=== PATIENT | female | born 1985 | race Caucasian/White ===

== ENCOUNTER 2017-03-20 11:50 | Emergency (ER) | payer OTHER ==
[~2017-03-20] VITALS: Ht 170.2 cm; Wt 75.0 kg
[2017-03-20 12:08] VITALS: TEMP 36.8; Ht 170.2 cm; Wt 75.0 kg
[2017-03-20 13:02] LABS: MANUAL MICROSCOPIC REQUIRED? NO; REVIEW REQ? NO; URINE APPEARANCE CLEAR (CLEAR); URINE BILIRUBIN NEG (NEG); URINE COLOR YELLOW; URINE EPITHELIAL CELL AUTO >30 /lpf (0-5); URINE NITRITE NEG (NEG); URINE PH 7.5 (4.5-7.5); UROBILINOGEN NEG (NEG); ZZUR CULT IF INDIC CLEAN CATCH YES
[2017-03-20 13:12] LABS: BASO % 0.3 %; BASO ABS # 0.02 K/uL (0-0.2); COMPLETE YES; HEMATOCRIT 41.2 % (37-47); IG% 0.1 %; LYMPH % 16.9 %; LYMPH ABS # 1.19 K/uL (1.2-3.4); MEAN CELL VOLUME 90.5 fL (80-100); MEAN CORPUSCULAR HEMOGLOBIN 31.6 pg (25-34); MEAN PLATELET VOLUME 10.5 fL (7.4-10.4); MONO % 8.2 %; NEUT % 73.5 %; PLATELET COUNT 197 K/uL (130-400); RED BLOOD COUNT 4.55 M/uL (4.2-5.4); WHITE BLOOD COUNT 7.06 K/uL (4.8-10.8)
[2017-03-20] MEDS ORDERED: SODIUM CHLORIDE 0.9% 1000ML 1,000 ML IV STA ×2 (13:22)
[2017-03-20] MEDS ORDERED: ONDANSETRON INJ 2 MG/ML 2 ML VIAL IV STA (13:22)
[2017-03-20] MEDS ORDERED: MECLIZINE HCL 25 MG TAB PO STA (13:22)
[2017-03-20] MEDS ORDERED: METHYLPREDNISOLONE 125 MG VIAL IV STA (13:22)
[2017-03-20 13:33] LABS: BUN/CREATININE RATIO 17.6 (10-20); CALCIUM 9.1 mg/dl (8.5-10.1); CREATININE 0.76 mg/dl (0.60-1.20); POTASSIUM 3.7 mmol/L (3.5-5.1)
[2017-03-20 13:36] LABS: ALB/GLOB RATIO 1.1 (0.9-2)
--- NOTE | 2017-03-20 13:36 | EMERGENCY ROOM VISIT NOTE ---
History Report prepared by Nilda: Quincy Roberts Under the Supervision of: Dr. Meaghan Celaya M.D. First contact with patient: 13:04 Chief Complaint: DIZZY Stated Complaint: DIZZY-WORSENING, NAUSEA, FEEL LIKE PASSING OUT Nursing Triage Summary: pt states she woke up this AM feeling very dizzy with any movement. "its like I am drunk without being drunk" "my head feels like its spinning,.. It took 20 minutes to put on my clothes." patient also c/o nausea. patient states she had 1 1/2 glasses of wine last night. History of Present Illness The patient is a 31 year old female who presents to the Emergency Room with complaints of worsening dizziness that started upon waking this morning. She says that she woke up and felt extremely dizzy, and could not stand up right. The patient states that at first she thought that she was a bit hazy from just waking up, but it took her 20 minutes to get dressed, and she had this "vertigo- type feeling of falling and spinning". She notes that she had to get dressed sitting on the floor. The patient describes it as feeling "drunk without drinking". She adds that she got up to use the restroom after sitting on the couch for a while, and felt "10 times" dizzier than before, and she felt like she was going to pass out. The patient sat on the floor for a bit, and then felt very nauseous. She says that she currently gets very nauseous with movement , and is still dizzy. She notes that she did not take any medications for the dizziness, and she denies hitting her head recently or having any stroke-like symptoms or allergies. The patient says that she last took Tramadol 2 and a half weeks ago for chronic back pain, and she takes a muscle relaxer. The patient adds that she drank a glass of wine last night, but did not have any other substances. She is on Nexplanon. Source of History: patient Onset: Upon waking this morning Position: other (global - dizziness) Quality: other ("vertigo-type") Timing: worsening Associated Symptoms: + nausea Note: Associated symptoms: [place] like going to pass out in bathroom. Denies hitting head recently or recent stroke-like symptoms. Review of Systems See HPI for pertinent positives & negatives. A total of 10 systems reviewed and were otherwise negative. Past Medical & Surgical Medical Problems: (1) No chronic diseases present Surgical Problems: (1) [place] teeth extracted Family History Heart disease Hypertension Social History Smoking Status: Never Smoker Alcohol Use: none Drug Use: none Marital Status: in relationship Housing Status: lives with family Occupation Status: employed Current/Historical Medications No Active Prescriptions or Reported Meds Allergies Coded Allergies: Ciprofloxacin (Verified Allergy, Mild, RASH, 03/20/17) Quinolones (Verified Allergy, Unknown, 06/03/15) Physical Exam Vital Signs Date Time Temp Pulse Resp B/P (MAP) Pulse Ox O2 Delivery O2 Flow Rate FiO2 03/20/17 15:51 70 20 112/72 98 Room Air 03/20/17 14:50 71 17 03/20/17 14:30 117/70 03/20/17 14:25 66 03/20/17 14:20 66 17 03/20/17 14:07 117/73 03/20/17 13:50 60 14 03/20/17 13:30 100/90 03/20/17 12:08 36.8 76 18 115/73 98 Room Air Physical Exam Vital signs reviewed. General: Well-appearing 31 year old female, in no significant distress. HEENT: No scleral icterus, PERRLA, neck supple. Atraumatic. Cardiovascular: Regular rate and rhythm, no extra sounds. Pulmonary: Clear to auscultation bilaterally, normal work of breathing. Abdomen: Soft, nontender, nondistended, positive bowel sounds. Musculoskeletal: Atraumatic, no peripheral edema. Neurologic: Patient awake alert and oriented x 3, full strength in all 4 extremities. Cranial nerves 2 through 12 grossly intact. Minimal horizontal nystagmus. Skin: Warm, dry, no rash Medical Decision & Procedures Laboratory Results 03/20/17 13:00 Red Blood Count 4.55, Mean Corpuscular Volume 90.5, Mean Corpuscular Hemoglobin 31.6, Mean Corpuscular Hemoglobin Concent 35.0, Mean Platelet Volume 10.5, Neutrophils (%) (Auto) 73.5, Lymphocytes (%) (Auto) 16.9, Monocytes (%) (Auto) 8.2, Eosinophils (%) (Auto) 1.0, Basophils (%) (Auto) 0.3, Neutrophils # (Auto) 5.19, Lymphocytes # (Auto) 1.19, Monocytes # (Auto) 0.58, Eosinophils # (Auto) 0.07, Basophils # (Auto) 0.02 03/20/17 13:00 Test 03/20/17 12:43 03/20/17 13:00 Urine Color YELLOW Urine Appearance CLEAR (CLEAR) Urine pH 7.5 (4.5-7.5) Urine Specific [place] 1.020 (1.000-1.030) Urine Protein NEG (NEG) Urine Glucose (UA) NEG (NEG) Urine Ketones NEG (NEG) Urine Occult Blood NEG (NEG) Urine Nitrite NEG (NEG) Urine Bilirubin NEG (NEG) Urine Urobilinogen NEG (NEG) Urine Leukocyte Esterase SMALL (NEG) Urine WBC (Auto) 5-10 /hpf (0-5) Urine RBC (Auto) 0-4 /hpf (0-4) Urine Hyaline Casts (Auto) 1-5 /lpf (0-5) Urine Epithelial Cells (Auto) >30 /lpf (0-5) Urine Bacteria (Auto) 4+ (NEG) Urine Test NEG (NEG) White Blood Count 7.06 K/uL (4.8-10.8) Red Blood Count 4.55 M/uL (4.2-5.4) Hemoglobin 14.4 g/dL (12.0-16.0) Hematocrit 41.2 % (37-47) Mean Corpuscular Volume 90.5 fL (80-100) Mean Corpuscular Hemoglobin 31.6 pg (25-34) Mean Corpuscular Hemoglobin Concent 35.0 g/dl (32-36) Platelet Count 197 K/uL (130-400) Mean Platelet Volume 10.5 fL (7.4-10.4) Neutrophils (%) (Auto) 73.5 % Lymphocytes (%) (Auto) 16.9 % Monocytes (%) (Auto) 8.2 % Eosinophils (%) (Auto) 1.0 % Basophils (%) (Auto) 0.3 % Neutrophils # (Auto) 5.19 K/uL (1.4-6.5) Lymphocytes # (Auto) 1.19 K/uL (1.2-3.4) Monocytes # (Auto) 0.58 K/uL (0.11-0.59) Eosinophils # (Auto) 0.07 K/uL (0-0.5) Basophils # (Auto) 0.02 K/uL (0-0.2) RDW Standard Deviation 41.4 fL (36.4-46.3) RDW Coefficient of Variation 12.5 % (11.5-14.5) Immature Granulocyte % (Auto) 0.1 % Immature Granulocyte # (Auto) 0.01 K/uL (0.00-0.02) Anion Gap 6.0 mmol/L (3-11) Est Creatinine Clear Calc Drug Dose 114.4 ml/min Estimated GFR () 122.0 Estimated GFR (Non- 105.3 BUN/Creatinine Ratio 17.6 (10-20) Calcium Level 9.1 mg/dl (8.5-10.1) Total Bilirubin 1.2 mg/dl (0.2-1) Aspartate Amino Transf (AST/SGOT) 14 U/L (15-37) Alanine Aminotransferase (ALT/SGPT) 13 U/L (12-78) Alkaline Phosphatase 59 U/L (45-117) Total Protein 7.5 gm/dl (6.4-8.2) Albumin 3.9 gm/dl (3.4-5.0) Globulin 3.6 gm/dl (2.5-4.0) Albumin/Globulin Ratio 1.1 (0.9-2) Date/Time Source Procedure Growth Status 03/20/17 12:43 Urine , Clean Catch Urine Culture - Final Escherichia Coli Complete Laboratory results per my review. Medications Administered Medications (Trade) Dose Ordered Sig/Lamont Route Start Time Stop Time Status Last Admin Dose Admin Ondansetron HCl (Zofran Inj) 4 mg NOW STAT IV 03/20/17 13:22 03/20/17 13:24 DC 03/20/17 13:34 4 MG Meclizine HCl (Antivert Tab) 25 mg NOW STAT PO 03/20/17 13:22 03/20/17 13:24 DC 03/20/17 13:33 25 MG Methylprednisolone Sodium Succinate (Solu-Medrol IV) 125 mg NOW STAT IV 03/20/17 13:22 03/20/17 13:24 DC 03/20/17 13:34 125 MG Sodium Chloride 1,000 ml @ 999 mls/hr Q1H1M STAT IV 03/20/17 13:22 10/20/17 14:22 DC 03/20/17 13:22 999 MLS/HR Sodium Chloride 1,000 ml @ 125 mls/hr Q8H STAT IV 03/20/17 13:22 03/20/17 16:46 DC 03/20/17 13:22 125 MLS/HR Meclizine HCl (Antivert 25MG Home Pack) 1 homepack UD ONCE PO 03/20/17 16:30 03/20/17 16:31 DC 03/20/17 16:33 1 HOMEPACK Ondansetron HCl (ZOFRAN ODT 4MG Home Pack) 1 homepack UD ONCE PO 03/20/17 16:30 03/20/17 16:31 DC 03/20/17 16:33 1 HOMEPACK ED Course 1321: Past medical records reviewed. The patient was evaluated in room C11B. A complete history and physical examination was performed. 1322: Ordered NSS 1000 ml @ 125 mls/hr IV, NSS 1000 ml @ 999 mls/hr IV, Solu- Medrol IV 125 mg IV, Antivert Tab 25 mg PO, Zofran Inj 4 mg IV. 1537: Upon reevaluation, the patient appeared to have improvement of her symptoms. I discussed findings with her. She verbalized agreement of the treatment plan. She was discharged home. 1630: Ordered Zofran ODT 4MG Home Pack 1 homepack PO, Antivert 25MG Home Pack 1 homepack PO. Medical Decision Differential diagnosis: Etiologies such as benign positional vertigo, dehydration, hypovolemia, anemia, tumor, infection, hypoglycemia, electrolyte abnormalities, cardiac sources, intracerebral event, toxicologic, neurologic, as well as others were entertained. This patient was evaluated and appeared to be in no significant distress. IV access was obtained and laboratory work was drawn. Patient was placed on the environmental monitoring specialist and found to be in a normal sinus rhythm. She was hydrated with over saline solution, given IV Zofran and IV Solu-Medrol. She was given oral meclizine. Laboratory work is fairly unrevealing. UA is largely negative and is contaminated with epithelial cells. This will be sent for culture. On reevaluation, the patient was feeling improved with occasional vertiginous symptoms. I suspect this is benign positional vertigo. She was given a meclizine home pack. She'll drink plenty of clear fluids and rest. Patient will follow-up with her physician this week for reevaluation return to the ER for worsening of symptoms or any medical concerns. Medication Reconcilliation Current Medication List: was personally reviewed by me Blood Pressure Screening Patient's blood pressure: Normal blood pressure Impression Primary Impression: Vertigo Scribe Attestation The scribe's documentation has been prepared under my direction and personally reviewed by me in its entirety. I confirm that the note above accurately reflects all work, treatment, procedures, and medical decision making performed by me. Departure Information Dispostion Home / Self-Care Prescriptions No Active Prescriptions or Reported Meds Referrals Angelo Cee M.D. (PCP) Patient Instructions My [facility] Additional Instructions Diagnosis: Vertigo Please drink plenty of clear fluids. Meclizine 25 mg 3 times daily as needed for vertigo. Zofran 4 mg ODT as needed for nausea. Follow-up with your physician this week for reevaluation. Return to the ER for worsening of symptoms or any medical concerns.
[2017-03-20 15:51] VITALS: BP 112/72; PULSE 70; O2SAT 98
[2017-03-20] MEDS ORDERED: ONDANSETRON HOME PACK 4MG OD TAB PO ONE (16:30)
[2017-03-20] MEDS ORDERED: MECLIZINE HCL 25MG HOME PACK PO ONE (16:30)
== END 2017-03-20 16:30 | disposition home or self-care (01) ==
LOC: C.EDB 11:52 → C.EDC 16:30
DX: R42 Dizziness and giddiness (principal); Z82.49 Family history of ischemic heart disease and other diseases of the circulatory system

== ENCOUNTER 2017-03-22 15:33 | Emergency (ER) | payer OTHER ==
[~2017-03-22] VITALS: Ht 170.2 cm; Wt 75.0 kg
[2017-03-22 15:36] VITALS: TEMP 36.6; Ht 170.2 cm; Wt 75.0 kg
[2017-03-22] MEDS ORDERED: NITR1CAP32 PO (15:51)
[2017-03-22] MEDS ORDERED: DIAZEPAM 5MG TAB PO STA (16:00)
[2017-03-22] MEDS ORDERED: SODIUM CHLORIDE 0.9% 1000ML 1,000 ML IV STA (16:00)
[2017-03-22] MEDS ORDERED: DiphenhydrAMINE HCL 50 MG/ML VIAL IV STA (16:00)
[2017-03-22] MEDS ORDERED: ONDANSETRON INJ 2 MG/ML 2 ML VIAL IV STA (16:00)
[2017-03-22] MEDS ORDERED: ONDA4TAB10 SL (18:13)
[2017-03-22] MEDS ORDERED: DIAZ-165 PO (18:13)
[2017-03-22] MEDS ORDERED: DIAZEPAM 5MG TAB PO ONE (18:15)
[2017-03-22] MEDS ORDERED: ONDANSETRON HOME PACK 4MG OD TAB PO ONE (18:15)
[2017-03-22 18:19] VITALS: BP 116/75; PULSE 65; O2SAT 100
[2017-03-22] MEDS ORDERED: EMPTY 8 DRAM VIAL ONE (18:21)
--- NOTE | 2017-03-23 01:26 | EMERGENCY ROOM VISIT NOTE ---
History First contact with patient: 15:46 Chief Complaint: VERTIGO Stated Complaint: DIZZY, VOMITING, VERTIGO History of Present Illness The patient is a 31 year old female who presents to the Emergency Room with complaints of persistent vertigo symptoms. The patient was evaluated in the emergency department 2 days ago with a normal workup. She was provided a prescription for meclizine, but reports that her symptoms are persisting. The patient has found only one position, laying on her right side with her head slightly elevated on a pillow. With any other movement, she reports progressively worsening spinning sensation. It is somewhat improved with her eyes shut, but is still present. She reports a split vision of both eyes as well. She reports mild photophobia. She denies headache, or other recent upper respiratory infections such as sinus congestion or sore throat. She denies any recent chest pain or shortness of breath. The patient denies any prior history of benign positional vertigo. Review of Systems HEENT: Denies hearing loss, tinnitus. Denies difficulty swallowing or oral lesions. PULMONARY: Denies cough, shortness of breath, sputum production or hemoptysis. CARDIOVASCULAR: Denies chest pain, palpitations, dyspnea on exertion, orthopnea or peripheral edema. GASTROINTESTINAL: Denies diarrhea, constipation, nausea, vomiting, or abdominal pain. GENITOURINARY: Denies dysuria, frequency, urgency or nocturia. NEUROLOGIC: Denies history of epilepsy, CVA, TIA or chronic headaches. MUSCULOSKELETAL: Denies history of joint tenderness/swelling. SKIN: Denies rashes or lesions. PSYCHIATRIC: Denies history of depression or mental illness. ENDOCRINE: Denies history of diabetes or thyroid disorders. Past Medical/Surgical History Medical Problems: (1) No chronic diseases present Surgical Problems: (1) [place] teeth extracted Family History Heart disease Hypertension Social History Smoking Status: Never Smoker Alcohol Use: none Drug Use: none Marital Status: in relationship Housing Status: lives with family Occupation Status: employed Current/Historical Medications Scheduled Diazepam (Valium), 5 MG PO TID Nitrofurantoin Macrocrystals (Macrodantin), 100 MG PO BID Ondasetron Odt (Zofran Odt), 4 MG SL Q6H Physical Exam Vital Signs Date Time Temp Pulse Resp B/P (MAP) Pulse Ox O2 Delivery O2 Flow Rate FiO2 03/22/17 18:19 65 116/75 100 Room Air 03/22/17 17:30 60 19 91/60 98 03/22/17 15:36 36.6 71 18 119/75 100 Room Air Physical Exam CONSTITUTIONAL: Healthy and well nourished. Alert and oriented X 3 with positive affect. The patient appears in moderate discomfort with nausea. She is laying in a right lateral lower, and position with her head on the pillow, and tries to keep her eyes closed. HEENT: Normocephalic, atraumatic. Pupils equal, round and reactive. No obvious nystagmus. NECK: Full active range of motion without discomfort. No JVD or carotid bruits. No nuchal rigidity. RESPIRATORY: Clear to auscultation bilaterally with no wheezing, crackles, rhonchi or stridor. CARDIOVASCULAR: Regular rate and rhythm with no murmurs, rubs or gallops. GASTROINTESTINAL: Bowel sounds present in all quadrants. Soft and nontender to palpation. MUSCULOSKELETAL: Full range of motion of all joints without discomfort. INTEGUMENTARY: No rash or other significant dermatologic conditions noted. NEUROLOGIC: No focal neurologic deficits noted. Medical Decision & Procedures Medications Administered Medications (Trade) Dose Ordered Sig/Lamont Route Start Time Stop Time Status Last Admin Dose Admin Sodium Chloride 1,000 ml @ 999 mls/hr Q1H1M STAT IV 03/22/17 16:00 03/22/17 17:00 DC 03/22/17 16:00 999 MLS/HR Diphenhydramine HCl (Benadryl Inj) 25 mg NOW STAT IV 03/22/17 16:00 03/22/17 16:03 DC 03/22/17 16:24 25 MG Diazepam (Valium Tab) 5 mg NOW STAT PO 03/22/17 16:00 03/22/17 16:03 DC 03/22/17 16:23 5 MG Ondansetron HCl (Zofran Inj) 4 mg NOW STAT IV 03/22/17 16:00 03/22/17 16:03 DC 03/22/17 16:24 4 MG Ondansetron HCl (ZOFRAN ODT 4MG Home Pack) 1 homepack UD ONCE PO 03/22/17 18:15 03/22/17 18:18 DC 03/22/17 18:15 1 HOMEPACK Diazepam (Valium Tab) 10 mg NOW ONCE PO 03/22/17 18:15 03/22/17 18:18 DC 03/22/17 18:15 10 MG Procedure 1. IV hydration: The patient was hydrated with a liter normal saline 2. IV medications: Benadryl 25 mg and Zofran 4 mg IVP 3. Oral medications: Valium 5 mg by mouth ED Course Patient history and physical exam were performed. Nurse's notes were reviewed. Vital signs were reviewed and were normal. I also reviewed documentation from the patient's ER evaluation 2 days ago. The patient had lab work performed that was normal. No imaging studies were performed. The patient described her symptoms on that visit that were most consistent with benign positional vertigo; her continued complaints today are still suggestive of the same etiology. At this point, I suggested IV access for symptomatic relief, and the patient was in agreement. IV access was established, and labs were drawn. The patient was hydrated with normal saline, and received IV Benadryl and Zofran, along with oral Valium as intravenous Valium preparation is on national backorder. After observation for approximately 1.5 hours, the patient did report feeling well enough to go home, although she still had noticeable dizziness. She reports that the visual disturbance had resolved, and does not appear to have the spinning sensation as bad as what it has been. The patient was provided a home pack and prescriptions for Valium and Zofran ODT. She was encouraged to follow-up with her PCP for further reevaluation and management. She was also provided contact information for [facility] to see if they have any other recommendations for vertigo referral. The patient was happy with plan of care, and voiced understanding of all discharge instructions. Medical Decision Patient presents to the emergency department with persistent complaints of vertiginous symptoms. It is noted that the patient had a thorough workup on her most recent ER visit, therefore I do not feel that further workup is warranted. The patient gives a classic description of benign positional vertigo. I do not suspect CVA/TIA, thromboembolic event, intracranial bleed, brain abscess or carbon monoxide poisoning. [place] Drug Monitoring Program Search Results: patient reviewed within database Medication Reconcilliation Current Medication List: was personally reviewed by me Blood Pressure Screening Patient's blood pressure: Normal blood pressure Impression Primary Impression: Benign positional vertigo Departure Information Prescriptions Ondasetron Odt (ZOFRAN ODT) 4 Mg Tab 4 MG SL Q6H for Nausea, #10 TAB Prov: Nirav Ryder PA 03/22/17 Diazepam (Valium) 5 Mg Tab 5 MG PO TID, #15 TAB Prov: Nirav Ryder PA 03/22/17 Referrals No Doctor, Assigned (PCP) Patient Instructions My [facility] Problem Qualifiers Primary Impression: Benign positional vertigo Laterality: unspecified laterality Qualified Codes: H81.10 - Benign paroxysmal vertigo, unspecified ear
== END 2017-03-22 18:37 | disposition home or self-care (01) ==
LOC: C.EDB 15:34 → C.EDC 18:37
DX: H81.10 Benign paroxysmal vertigo, unspecified ear (principal); Z82.49 Family history of ischemic heart disease and other diseases of the circulatory system

== ENCOUNTER 2018-01-21 15:04 | Observation (INO) | payer OTHER ==
[~2018-01-21] VITALS: Ht 170.2 cm; Wt 77.6 kg
[2018-01-21 15:40] VITALS: BP 118/73; PULSE 81; TEMP 36.4; O2SAT 98
[2018-01-21] MEDS: OXYCODONE/ACETAMINOPHEN 5-325 TAB PO PRN ×2 (17:48→22:00)
[2018-01-21] MEDS: LACTATED RINGER'S 1000ML 1,000 ML IV SCH (17:50)
[2018-01-21] MEDS: IBUPROFEN 600 MG TAB PO SCH (19:36)
[2018-01-21 23:15] VITALS: BP 116/70; PULSE 86; TEMP 37; O2SAT 99
[2018-01-22] MEDS: LACTATED RINGER'S 1000ML 1,000 ML IV SCH (01:53)
[2018-01-22] MEDS: OXYCODONE/ACETAMINOPHEN 5-325 TAB PO PRN (02:33)
[2018-01-22 04:20] VITALS: BP 119/67; PULSE 84; TEMP 37; O2SAT 98
[2018-01-22] MEDS ORDERED: IBUPROFEN 600 MG TAB PO PRN (04:45)
[2018-01-22] MEDS ORDERED: NURSING VERBAL MED ORDER ONE (04:45)
[2018-01-22] MEDS: IBUPROFEN 600 MG TAB PO PRN ×3 (04:53→15:28)
[2018-01-22 07:39] VITALS: BP 106/60; PULSE 86; TEMP 37.2; O2SAT 98
[2018-01-22 07:41] VITALS: BP 106/60; PULSE 86; TEMP 37.2; O2SAT 98
[2018-01-22] MEDS: IBUPROFEN 600 MG TAB PO SCH (08:45)
--- NOTE | 2018-01-22 09:30 | Surgery Progress Note ---
Surgery Progress Note Date of Service Jan 22, 2018. Subjective Post OP Day: 1 + nausea Objective Vital Signs: Date Time Temp Pulse Resp B/P (MAP) Pulse Ox O2 Delivery O2 Flow Rate FiO2 01/22/18 07:55 Room Air 01/22/18 07:41 37.2 86 16 106/60 (75) 98 Room Air 01/22/18 07:39 37.2 86 16 106/60 (75) 98 Room Air 01/22/18 04:20 37.0 84 18 119/67 (84) 98 Room Air 01/21/18 23:15 99 Room Air 01/21/18 23:15 37.0 86 18 116/70 (85) 99 Room Air 01/21/18 15:40 36.4 81 16 118/73 (88) 98 Room Air 01/21/18 15:40 98 Room Air 01/21/18 15:40 Room Air General Appearance: WD/WN, no apparent distress Respiratory/Chest: lungs clear, normal breath sounds Cardiovascular: regular rate, rhythm Abdomen: normal bowel sounds, non tender, non distended Assessment & Plan 32 yo s/p attempted LEEP and cold knife biopsy complicated by bleeding in the PACU, leading to second surgical procedure of EUA. Second procedure did not yield any bleeding. Hemostatic agents (Surgicel and floseal) and vaginal packing added to the cervix and vaginal cavity. Patient was lightheaded and nauseous in [facility] PACU and sent via ambulance to [facility] for observation. Light pink blood on maxipad overnight. VSS. No active bleeding. Vaginal packing removed. IV heplock. Plan to discharge home later today. regular diet
[2018-01-22] MEDS: ACETAMINOPHEN 325 MG TAB PO PRN ×2 (09:41→15:26)
[2018-01-22 11:54] VITALS: BP 116/72; PULSE 97; TEMP 37.2; O2SAT 99
[2018-01-22] MEDS ORDERED: ACET-1047 PO (12:48)
--- NOTE | 2018-01-22 12:50 | Discharge Instructions ---
Discharge Instructions Date of Service Jan 22, 2018. Admission Reason for Admission: Post-Leep Procedure, Back, Pelvic Pain Discharge Discharge Diagnosis / Problem: Post-op Discharge Goals Goal(s): Routine recovery after surgery Activity Recommendations Activity Limitations: as noted below ACTIVITY RECOMMENDATIONS: * Avoid tampons, douching, hot tubs, pools, and intercourse until bleeding has stopped. * May shower as usual. * No strenuous activity for 24-48 hours. After 24-48 hours, you can do anything you feel like doing (driving and sports are okay). RETURN TO SCHOOL/WORK: * You may return to school or work after 24 hours unless specified by your physician. DIET: * Resume previous diet. MEDICATIONS: Resume previous medications unless instructed otherwise by your surgeon. Ibuprofen 200mg 2-3 tablets every 4-6 hours as needed --OR-- Aleve 2 tablets every 8-12 hours as needed for post-operative discomfort Medications are over the counter. Tylenol may be used if above medications are contraindicated or not preferred. Medication should be taken with food or milk. do not take on an empty stomach. SPECIAL CARE INSTRUCTIONS: * Check temperature twice daily for one week. Report any elevation over 101 degrees. * Call office if you experience increased pelvic pain or discomfort not relieved by pain medicine, if you have foul smelling vaginal discharge, if you have bleeding that is heavier than a normal menstrual flow. If you are changing a maxi pad every 1- 2 hours, this is too heavy. vaginal spotting is normal for 1-2 weeks. FOLLOW UP VISIT: Call your doctor's office for a post-operative visit. . Instructions / Follow-Up Instructions / Follow-Up Follow-up appointment with Dr. Etienne at the [facility] office on 01/25/2018 at 10 am . Please arrive 15 minutes early for Nursing triage. Current Hospital Diet Patient's current hospital diet: Regular Diet Discharge Diet Recommended Diet: Regular Diet Pending Studies Studies pending at discharge: yes List of pending studies: [facility] Medical Emergencies . Who to Call and When: Medical Emergencies: If at any time you feel your situation is an emergency, please call 911 immediately. . Non-Emergent Contact Non-Emergency issues call your: Fac Engineer Contact Number: [phone] . . "Provider Documentation" section prepared by Prabha Waddell. .
[2018-01-22] MEDS ORDERED: IV FLUIDS COMPLETED PRN (14:45)
[2018-01-22 14:49] LABS: HEMATOCRIT 26.5 % (37-47); HEMOGLOBIN 9.1 g/dL (12.0-16.0); MEAN CELL VOLUME 92.3 fL (80-100); MEAN CORPUSCULAR HEMOGLOBIN 31.7 pg (25-34); MEAN PLATELET VOLUME 9.7 fL (7.4-10.4); PLATELET COUNT 160 K/uL (130-400); RED CELL DISTRIBUTION WIDTH CV 12.9 % (11.5-14.5); RED CELL DISTRIBUTION WIDTH SD 43.6 fL (36.4-46.3); WHITE BLOOD COUNT 8.27 K/uL (4.8-10.8)
[2018-01-22 15:05] VITALS: BP 110/70; PULSE 100; TEMP 37.1; O2SAT 99
[2018-01-22 15:20] LABS: MEAN CORPUSCULAR HGB CONC 34.3 g/dl (32-36)
[2018-01-22 15:50] VITALS: BP 110/70; PULSE 100; TEMP 37.1; O2SAT 99
[2018-01-24] MEDS ORDERED: METH-445 PO (10:06)
[2018-01-24] MEDS ORDERED: PEDICHW53 PO (10:06)
[2018-01-24] MEDS ORDERED: NAPR1TAB9 PO (17:27)
[2018-01-24] MEDS ORDERED: ACET-1346 PO (17:27)
[2018-01-24] MEDS ORDERED: MTR/600 PO (17:27)
[2018-01-25] MEDS ORDERED: ONDA4TAB65 PO (16:31)
[2018-01-25] MEDS ORDERED: DOXY1TAB6 PO (16:31)
--- NOTE | 2018-01-29 12:01 | DISCHARGE SUMMARY ---
CHIEF COMPLAINT: Observation after cold knife conization at [facility]. HISTORY OF PRESENT ILLNESS: A 32-year-old female status post an attempted LEEP and cold knife conization complicated by excessive bleeding in the [facility] PACU, which led to a secondary surgical procedure of exam under anesthesia. The second surgical procedure of exam under anesthesia did not yield any bleeding. The patient's vagina was packed with hemostatic agents and the patient was transferred to [facility] for 23-hour observation. PAST MEDICAL HISTORY: Noncontributory. SOCIAL HISTORY: The patient drinks alcohol occasionally. Denies smoking or recreational drug use. There is a family history of heart disease and a family history of hypertension. ALLERGIES: LIDOCAINE. REVIEW OF SYSTEMS: Positive for pelvic pain and vaginal spotting. PHYSICAL EXAMINATION: GENERAL: She was in no apparent distress. RESPIRATORY: Lungs clear. Normal breath sounds. HEART: Regular rate and rhythm. ABDOMEN: Normal bowel sounds, nontender, nondistended. GENITOURINARY: Minimal to no spotting. Vaginal packing was removed on day of discharge. Cervix was status post a cold knife conization. No active bleeding on exam. Labs, vital signs on discharge, her temperature was 37.2, pulse 86, respiratory rate 16, blood pressure was 106/60. Her pulse ox was 98 on room air. Labs her white blood count was 8.27. Her hemoglobin was 9.1, hematocrit 26.5, and her platelet was 160. Condition on discharge was stable. Operation was attempted LEEP status post cold knife conization. Second procedure was exam under anesthesia. DISCHARGE DIAGNOSIS: Observation after outpatient surgery. Plan on discharge to include instructions regarding activity, diet and followup appointments were provided as well as medication.
== END 2018-01-22 15:50 | disposition home or self-care (01) ==
LOC: UNDOADMOB 16:00 → C.MS4N 16:00 → INTOOBSV 16:00 → C.MS4N 17:26
PROVIDERS: ADMIT Obstetrics & Gynecology Obstetrics; ATTEND Obstetrics & Gynecology Obstetrics
DX: M54.9 Dorsalgia, unspecified (principal); R10.2 Pelvic and perineal pain; R42 Dizziness and giddiness; R11.0 Nausea

== ENCOUNTER 2020-04-05 08:13 | Inpatient (IN) ==
[2020-04-05] MEDS ORDERED: OPTIRAY 320 125ml IV ONE (08:37)
--- NOTE | 2020-04-05 08:39 | Emergency Department Note ---
History of Present Illness General Chief complaint: Weakness Stated complaint: RIGHT SIDED NUMBNESS/LEG WEAKNESSES Time Seen by Provider: 04/05/20 08:25 Source: patient Limitations: no limitations History of Present Illness Provider complaint: Right upper extremity weakness, altered sensation Onset (ago): minute(s) 30 Location: upper extremity Radiation: neck and abdomen Severity: mild Maximum Pain Intensity: 0 Current Pain Intensity: 0 This is a 34-year-old female who states this morning while driving to work at 8 AM she had the sudden onset of right upper extremity weakness and altered se nsation. Patient states she has a prior history of numbness and intermittent weakness to the right lower extremity due to ongoing back problems at L5/S1 for which she occasionally will use a muscle relaxer or tramadol. Patient does have a history of infrequent migraines, although has never had paresthesias or weakness with her migraines, denies any history of complex migraines. Patient is right-hand dominant. Patient was concerned about driving so she pulled over and called 911. Patient denies any recent trauma or change in activity, no new medications. Patient denies any history of young onset stroke in the family. Patient denies any recent illness. Pt seen during a time of high acuity and national emergency pandemic while wearing PPE. Home Medications Home Medications Medication Instructions Recorded Confirmed Type methocarbamol 750 mg PO Q8 PRN 05/06/18 04/05/20 History tramadol 50 mg PO Q6 PRN 05/06/18 04/05/20 History aspirin 81 mg PO DAILY #90 tab 04/06/20 Rx magnesium oxide 400 mg PO QAM #30 tab 04/06/20 Rx Allergies Allergy/AdvReac Type Severity Reaction Status Date / Time lidocaine Allergy Intermediate Entire Verified 04/05/20 09:28 body numbness Cipro Allergy Mild SEVERE Verified 01/22/18 15:28 TOTAL BODY RASH ciprofloxacin Allergy Mild SEVERE Verified 04/05/20 09:28 TOTAL BODY RASH Past Med/Surg History Medical History (Updated 04/06/20 @ 16:58 by Isatu Escalante DO) Anxiety Chronic lower back pain UV keratitis Surgical History H/O thumb surgery H/O: hysterectomy [place] teeth extracted Family History Other Breast cancer Diabetes Hypertension Social History Smoking Status: Never smoker Second Hand Exposure: No; Hx Alcohol Use: Yes Alcohol type: beer Alcohol Intake Frequency: 4 or More x per/Week Hx Substance Use: No Preferred Language: Greek Communication Ability: Effective 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 Beliefs That Will Affect Care: None Current Living Situation: Alone Feels Safe at Home: Yes Assistive Devices: None Physical Exam Vital Signs Vital Signs - 24 hr 04/05/20 08:16 04/05/20 08:27 04/05/20 08:32 Temperature 36.7 C Temperature Source Oral Pulse Rate 89 103 H Pulse Rate [Apical] Pulse Rate from SpO2 Sensor 102 H Respiratory Rate 16 18 Respiratory Effort / Characteristics Non-Labored Respiratory Depth Normal Respiratory Pattern Regular Blood Pressure 134/84 136/92 Blood Pressure [Left Arm] Blood Pressure Mean 100 109 Blood Pressure Mean [Left Arm] Blood Pressure Position Sitting Pulse Oximetry 99 99 95 Oxygen Delivery Method Room Air Room Air Room Air Sepsis Recent Fever Within 48 Hours No Sepsis New/Unexplained Change in Mental Status N/A Sepsis Action Taken by Nursing No Action Required 04/05/20 09:02 04/05/20 09:06 04/05/20 09:10 Temperature Temperature Source Pulse Rate 74 76 79 Pulse Rate [Apical] Pulse Rate from SpO2 Sensor 73 74 77 Respiratory Rate 12 14 15 Respiratory Effort / Characteristics Respiratory Depth Respiratory Pattern Blood Pressure 129/81 132/86 124/82 Blood Pressure [Left Arm] Blood Pressure Mean 95 97 92 Blood Pressure Mean [Left Arm] Blood Pressure Position Pulse Oximetry 100 100 98 Oxygen Delivery Method Room Air Room Air Sepsis Recent Fever Within 48 Hours Sepsis New/Unexplained Change in Mental Status Sepsis Action Taken by Nursing 04/05/20 09:11 04/05/20 09:15 04/05/20 09:20 Temperature Temperature Source Pulse Rate 76 76 Pulse Rate [Apical] 74 Pulse Rate from SpO2 Sensor 75 Respiratory Rate 16 19 18 Respiratory Effort / Characteristics Non-Labored Spontaneous Respiratory Depth Normal Respiratory Pattern Blood Pressure 136/82 118/88 Blood Pressure [Left Arm] 128/84 Blood Pressure Mean 103 98 Blood Pressure Mean [Left Arm] 98 Blood Pressure Position Pulse Oximetry 100 97 Oxygen Delivery Method Room Air Sepsis Recent Fever Within 48 Hours Sepsis New/Unexplained Change in Mental Status Sepsis Action Taken by Nursing 04/05/20 09:21 04/05/20 09:30 04/05/20 09:35 Temperature Temperature Source Pulse Rate 75 75 78 Pulse Rate [Apical] 74 Pulse Rate from SpO2 Sensor 75 78 79 Respiratory Rate 19 23 13 Respiratory Effort / Characteristics Respiratory Depth Respiratory Pattern Blood Pressure 128/84 125/78 134/93 Blood Pressure [Left Arm] 134/93 Blood Pressure Mean 91 90 105 Blood Pressure Mean [Left Arm] 106 Blood Pressure Position Pulse Oximetry 98 98 97 Oxygen Delivery Method Room Air Sepsis Recent Fever Within 48 Hours Sepsis New/Unexplained Change in Mental Status Sepsis Action Taken by Nursing 04/05/20 09:45 04/05/20 09:50 04/05/20 10:00 Temperature Temperature Source Pulse Rate 78 73 79 Pulse Rate [Apical] 83 Pulse Rate from SpO2 Sensor 82 73 80 Respiratory Rate 22 13 14 Respiratory Effort / Characteristics Respiratory Depth Respiratory Pattern Blood Pressure 134/82 111/74 125/83 Blood Pressure [Left Arm] 111/74 Blood Pressure Mean 105 83 93 Blood Pressure Mean [Left Arm] 86 Blood Pressure Position Pulse Oximetry 97 96 98 Oxygen Delivery Method Room Air Room Air Room Air Sepsis Recent Fever Within 48 Hours Sepsis New/Unexplained Change in Mental Status Sepsis Action Taken by Nursing 04/05/20 10:05 04/05/20 10:06 04/05/20 10:15 Temperature Temperature Source Pulse Rate 77 73 Pulse Rate [Apical] 78 Pulse Rate from SpO2 Sensor 79 Respiratory Rate 16 14 15 Respiratory Effort / Characteristics Respiratory Depth Respiratory Pattern Blood Pressure 120/68 124/78 Blood Pressure [Left Arm] 120/68 Blood Pressure Mean 79 83 Blood Pressure Mean [Left Arm] 85 Blood Pressure Position Pulse Oximetry 97 96 98 Oxygen Delivery Method Room Air Room Air Sepsis Recent Fever Within 48 Hours Sepsis New/Unexplained Change in Mental Status Sepsis Action Taken by Nursing 04/05/20 10:20 04/05/20 10:35 04/05/20 10:36 Temperature Temperature Source Pulse Rate 78 71 Pulse Rate [Apical] 85 70 Pulse Rate from SpO2 Sensor 79 71 Respiratory Rate 21 16 14 Respiratory Effort / Characteristics Respiratory Depth Respiratory Pattern Blood Pressure 136/81 110/78 Blood Pressure [Left Arm] 136/81 110/78 Blood Pressure Mean 92 83 Blood Pressure Mean [Left Arm] 99 88 Blood Pressure Position Pulse Oximetry 98 98 98 Oxygen Delivery Method Room Air Room Air Sepsis Recent Fever Within 48 Hours Sepsis New/Unexplained Change in Mental Status Sepsis Action Taken by Nursing 04/05/20 10:45 04/05/20 10:50 04/05/20 11:00 Temperature Temperature Source Pulse Rate 74 77 77 Pulse Rate [Apical] 80 Pulse Rate from SpO2 Sensor 77 78 80 Respiratory Rate 17 16 15 Respiratory Effort / Characteristics Respiratory Depth Respiratory Pattern Blood Pressure 115/70 112/73 119/74 Blood Pressure [Left Arm] 112/73 Blood Pressure Mean 87 82 89 Blood Pressure Mean [Left Arm] 86 Blood Pressure Position Pulse Oximetry 98 97 96 Oxygen Delivery Method Room Air Room Air Room Air Sepsis Recent Fever Within 48 Hours Sepsis New/Unexplained Change in Mental Status Sepsis Action Taken by Nursing 04/05/20 11:01 Temperature Temperature Source Pulse Rate 78 Pulse Rate [Apical] Pulse Rate from SpO2 Sensor 79 Respiratory Rate 15 Respiratory Effort / Characteristics Respiratory Depth Respiratory Pattern Blood Pressure Blood Pressure [Left Arm] Blood Pressure Mean Blood Pressure Mean [Left Arm] Blood Pressure Position Pulse Oximetry 98 Oxygen Delivery Method Sepsis Recent Fever Within 48 Hours Sepsis New/Unexplained Change in Mental Status Sepsis Action Taken by Nursing Course Course 0840: Case discussed with Dr. Martinez, [facility] neurology. 0907: Discussed with Dr. Martinez, would recommend tPA. She discussed risks/benefits with the pt. I will place order. 0917: I again discussed with patient if she felt she understood the risks versus benefits of receiving TPA as discussed with Dr. Martinez. She verbalized understanding of all this. Patient signed consent form, I cosigned. 0930: Discussed with Kathi, [facility] hospitalist team. 0950: Discussed with Kathi, [facility] hospitalist team. She states in discussion with neurology on-call, they are uncomfortable with the patient being kept here and feel she should be transferred to a tertiary care facility. 1001: Kathi spoke to the patient at bedside and she verbalized understanding. She would prefer to be transferred to [facility] in [place]. 1035: Case discussed with Dr. Gee, neurology at [facility]. Feels patient does not require transfer and could be safely managed here at this time. They are available for any consultation should her condition change. Administered Medications Discontinued Medications Alteplase, Recombinant (Tpa For Stroke) 1 ea IV NOW STA; Protocol Stop: 04/05/20 09:08 Last Admin: 04/05/20 09:23 Dose: Not Given Documented by: [id number] Alteplase, Recombinant 7 mg/ (Syringe) 7 mls @ 7 mls/min IV ONCE ONE Stop: 04/05/20 09:20 Last Admin: 04/05/20 09:20 Dose: 7 mls/min Documented by: [id number] Cosigned by: [id number] Alteplase, Recombinant 62 mg/ (EMPTY BAG) 62 mls @ 62 mls/hr IV ONCE ONE Stop: 04/05/20 09:21 Last Infusion: 04/05/20 10:20 Dose: 0 mls/hr Documented by: [id number] Cosigned by: [id number] Admin: 04/05/20 09:20 Dose: 62 mls/hr Documented by: [id number] Cosigned by: [id number] Ioversol (Optiray 320 125ml) 120 ml IV ONCE ONE Stop: 04/05/20 08:38 Last Admin: 04/05/20 08:37 Dose: 120 ml Documented by: [id number] Lorazepam (Lorazepam 0.5 Mg Tab) 0.5 mg PO NOW [facility] Stop: 04/05/20 13:28 Last Admin: 04/05/20 14:36 Dose: 0.5 mg Documented by: [id number] Magnesium Oxide (Magnesium Oxide 400 Mg Tab) 400 mg PO QAM [facility] Stop: 05/06/20 12:29 Last Admin: 04/06/20 13:17 Dose: 400 mg Documented by: [id number] Vitamin B Complex (Vitamin B Complex Tab) [facility] [place] Stop: 05/06/20 12:29 Last Admin: 04/06/20 13:17 Dose: 1 tab Documented by: [id number] Critical Care Time Critical Care Time: Yes Total Critical Care Time: 39 Critical care of 39 min performed to assess and manage high likelihood of life-threatening CVA, involving labs and imaging performed with assessment to evaluate CVA diagnosis with frequent reassessment. This time includes bedside time, treatment discussions with patient/family/consultants, documentation time and excludes procedure time. Medical Decision Making Differential Diagnosis Differential Diagnosis includes but is not limited to ischemic Stroke, hemorrhagic stroke, bells palsy, mass, neoplasm, migraine headache, seizure, subarachnoid hemorrhage, TIA, and transient global amnesia. Medical Records Attestation: I reviewed the patient's medical records. Home Medications Current Medication List: was personally reviewed by me Laboratory Data Attestation: I reviewed the patient's lab results. Result diagrams: 04/06/20 09:26 04/06/20 09:26 Lab Results 04/05/20 04/05/20 04/05/20 Range/Units 08:31 08:31 08:31 WBC 6.50 (4.8-10.8) K/uL RBC 4.67 (4.2-5.4) M/uL Hgb 14.6 (12.0-16.0) g/dL Hct 43.0 (37-47) % MCV 92.1 (80-100) fL MCH 31.3 (25-34) pg MCHC 34.0 (32-36) g/dL RDW Std Deviation 42.8 (36.4-46.3) fL RDW Coeff of Melanie 12.8 (11.5-14.5) % Plt Count 217 (130-400) K/uL MPV 10.3 (7.4-10.4) fL Immature Gran % (Auto) 0.2 % Neut % (Auto) 46.5 % Lymph % (Auto) 44.0 % Roane % (Auto) 8.2 % Eos % (Auto) 0.9 % Baso % (Auto) 0.2 % Neut # (Auto) 3.03 (1.4-6.5) K/uL Lymph # (Auto) 2.86 (1.2-3.4) K/uL Roane # (Auto) 0.53 (0.11-0.59) K/uL Eos # (Auto) 0.06 (0-0.5) K/uL Baso # (Auto) 0.01 (0-0.2) K/uL Immature Gran # (Auto) 0.01 (0.00-0.02) K/uL PT 10.7 (9.0-12.0) Seconds INR 1.0 (0.9-1.1) APTT 27.2 (21.0-31.0) Seconds PTT Ratio 1.0 Sodium (136-145) mmol/L Potassium (3.5-5.1) mmol/L Chloride (98-107) mmol/L Carbon Dioxide (21-32) mmol/L Anion Gap (3-11) BUN (7-18) mg/dl Creatinine (0.6-1.2) mg/dl Est Cr Clr Drug Dosing ml/min Est GFR ( Amer) Est GFR (Non-Af Amer) BUN/Creatinine Ratio (10-20) Glucose (70-99) mg/dl POC Glucose (70-99) mg/dl Calcium (8.5-10.1) mg/dl Magnesium (1.8-2.4) mg/dl Total Bilirubin (0.2-1) mg/dl AST (15-37) U/L ALT (12-78) U/L Alkaline Phosphatase (45-117) U/L Troponin I (0-0.045) ng/ml Total Protein (6.4-8.2) gm/dl Albumin (3.4-5.0) gm/dl Globulin (2.5-4.0) gm/dl Albumin/Globulin Ratio (0.9-2) COVID-19 Eval Order SARS-CoV-2, RNA, NAAT (NEGATIVE) Blood Type AB Positive Antibody Screen NEGATIVE 04/05/20 04/05/20 04/05/20 Range/Units 08:31 08:45 10:30 WBC (4.8-10.8) K/uL RBC (4.2-5.4) M/uL Hgb (12.0-16.0) g/dL Hct (37-47) % MCV (80-100) fL MCH (25-34) pg MCHC (32-36) g/dL RDW Std Deviation (36.4-46.3) fL RDW Coeff of Melanie (11.5-14.5) % Plt Count (130-400) K/uL MPV (7.4-10.4) fL Immature Gran % (Auto) % Neut % (Auto) % Lymph % (Auto) % Roane % (Auto) % Eos % (Auto) % Baso % (Auto) % Neut # (Auto) (1.4-6.5) K/uL Lymph # (Auto) (1.2-3.4) K/uL Roane # (Auto) (0.11-0.59) K/uL Eos # (Auto) (0-0.5) K/uL Baso # (Auto) (0-0.2) K/uL Immature Gran # (Auto) (0.00-0.02) K/uL PT (9.0-12.0) Seconds INR (0.9-1.1) APTT (21.0-31.0) Seconds PTT Ratio Sodium 140 (136-145) mmol/L Potassium 3.8 (3.5-5.1) mmol/L Chloride 106 (98-107) mmol/L Carbon Dioxide 28 (21-32) mmol/L Anion Gap 6.0 (3-11) BUN 10 (7-18) mg/dl Creatinine 0.85 (0.6-1.2) mg/dl Est Cr Clr Drug Dosing 100.6 ml/min Est GFR ( Amer) 104.3 Est GFR (Non-Af Amer) 90.0 BUN/Creatinine Ratio 11.6 (10-20) Glucose 94 (70-99) mg/dl POC Glucose 91 (70-99) mg/dl Calcium 9.2 (8.5-10.1) mg/dl Magnesium 2.0 (1.8-2.4) mg/dl Total Bilirubin 1.3 H (0.2-1) mg/dl AST 15 (15-37) U/L ALT 17 (12-78) U/L Alkaline Phosphatase 57 (45-117) U/L Troponin I < 0.015 (0-0.045) ng/ml Total Protein 7.9 (6.4-8.2) gm/dl Albumin 3.8 (3.4-5.0) gm/dl Globulin 4.1 H (2.5-4.0) gm/dl Albumin/Globulin Ratio 0.9 (0.9-2) COVID[facility]19 [email or web address] SARS-[facility]-2, RNA, NAAT (NEGATIVE) Blood Type Antibody Screen 04/05/20 Range/Units 10:30 WBC (4.8-10.8) K/uL RBC (4.2-5.4) M/uL Hgb (12.0-16.0) g/dL Hct (37-47) % MCV (80-100) fL MCH (25-34) pg MCHC (32-36) g/dL RDW Std Deviation (36.4-46.3) fL RDW Coeff of Melanie (11.5-14.5) % Plt Count (130-400) K/uL MPV (7.4-10.4) fL Immature Gran % (Auto) % Neut % (Auto) % Lymph % (Auto) % Roane % (Auto) % Eos % (Auto) % Baso % (Auto) % Neut # (Auto) (1.4-6.5) K/uL Lymph # (Auto) (1.2-3.4) K/uL Roane # (Auto) (0.11-0.59) K/uL Eos # (Auto) (0-0.5) K/uL Baso # (Auto) (0-0.2) K/uL Immature Gran # (Auto) (0.00-0.02) K/uL PT (9.0-12.0) Seconds INR (0.9-1.1) APTT (21.0-31.0) Seconds PTT Ratio Sodium (136-145) mmol/L Potassium (3.5-5.1) mmol/L Chloride (98-107) mmol/L Carbon Dioxide (21-32) mmol/L Anion Gap (3-11) BUN (7-18) mg/dl Creatinine (0.6-1.2) mg/dl Est Cr Clr Drug Dosing ml/min Est GFR ( Amer) Est GFR (Non-Af Amer) BUN/Creatinine Ratio (10-20) Glucose (70-99) mg/dl POC Glucose (70-99) mg/dl Calcium (8.5-10.1) mg/dl Magnesium (1.8-2.4) mg/dl Total Bilirubin (0.2-1) mg/dl AST (15-37) U/L ALT (12-78) U/L Alkaline Phosphatase (45-117) U/L Troponin I (0-0.045) ng/ml Total Protein (6.4-8.2) gm/dl Albumin (3.4-5.0) gm/dl Globulin (2.5-4.0) gm/dl Albumin/Globulin Ratio (0.9-2) COVID-19 Eval Order SARS-CoV-2, RNA, NAAT NEGATIVE (NEGATIVE) Blood Type Antibody Screen ECG Data Attestation: I personally reviewed and interpreted this ECG as follows: Indication: + weakness Rate (beats per minute): 92 Rhythm: + normal sinus ECG Intervals/blocks: + Normal QRS and + Normal QT ECG Rewey: + Normal ECG ST segments: + Normal ST segments Blood Pressure Blood Pressure Findings: Normal blood pressure MDM Narrative This is a well-appearing relatively healthy 34-year-old who presented with new right upper extremity paresthesias and weakness. Patient with chronic intermittent right lower extremity weakness and paresthesias secondary to low back problems and lumbar radiculopathy. Given abrupt onset patient came here immediately. Patient made a stroke alert by nursing staff, orders placed and patient sent urgently for CT imaging. During this time I discussed the case with her she neurology. After they evaluated the patient at bedside, they called me back to state they felt patient should be given TPA. I called pharmacy and immediately placed the order, TPA came to bedside. While the [facility] neurologist told me she discussed risks and benefits with the patient at bedside, I was asked to sign the consent form with the patient. I again went over risks versus benefits with the patient, she signed the consent form in the presence of nursing staff and I cosigned. Patient started on TPA here, and case discussed with hospitalist for additional management. 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 The reason of this is unclear. All of patient's imaging was unremarkable. I did contact [facility] who stated patient did not need to be transferred there as they would not perform any additional invasive procedure or intervention at this time and they also had limited capacity to accept new patients. I again discussed this with the hospitalist who verbalized understanding and recontacted neurology, patient will be admitted here. Patient remained hemodynamically stable in the emergency room, and did verbalize improvement in symptoms following infusion of TPA. An order was placed for continuous cardiac monitoring. The monitor shows a rate of _90_ with _normal sinus_ rhythm. Impression & Plan Stroke-like symptoms, Arm paresthesia, right, Weakness, Lumbar radiculopathy Discharge Plan Visit Data Chief Complaint: Weakness Stated Complaint: RIGHT SIDED NUMBNESS/LEG WEAKNESSES ED Provider: Isatu Escalante ED Midlevel Provider: Manpreet Licona Discharge Problem: Stroke-like symptoms, Arm paresthesia, right, Weakness, Lumbar radiculopathy Patient Disposition: Admitted As Inpatient Condition: Good Discharge Instructions Interventions: ED Discharge Assessment Last Done: 04/05/20 12:26
[2020-04-05 08:42] LABS: Basophils # (auto) 0.01 K/uL (0-0.2); Basophils % (auto) 0.2 %; Eosinophils # (auto) 0.06 K/uL (0-0.5); Eosinophils % (auto) 0.9 %; Hemoglobin 14.6 g/dL (12.0-16.0); Immature Granulocytes # (auto) 0.01 K/uL (0.00-0.02); Immature Granulocytes % (auto) 0.2 %; Lymphocytes # (auto) 2.86 K/uL (1.2-3.4); Mean Corpuscular Hemoglobin 31.3 pg (25-34); Mean Corpuscular Volume 92.1 fL (80-100); Mean Platelet Volume 10.3 fL (7.4-10.4); Monocytes # (auto) 0.53 K/uL (0.11-0.59); Monocytes % (auto) 8.2 %; Neutrophils # (auto) 3.03 K/uL (1.4-6.5); Neutrophils % (auto) 46.5 %; Platelet Count 217 K/uL (130-400); RDW Coefficient of Variation 12.8 % (11.5-14.5); RDW Standard Deviation 42.8 fL (36.4-46.3); Red Blood Count 4.67 M/uL (4.2-5.4)
--- NOTE | 2020-04-05 08:51 | CT Scan Report ---
HEAD CT NONCONTRAST CT DOSE: HISTORY: Right-sided weakness. Stroke evaluation TECHNIQUE: Multiaxial CT images of the head were performed without the use of intravenous contrast. A utomated exposure control was utilized for this study. A dose lowering technique was utilized adheri ng to the principles of ALARA. Comparison: Head CT 07/09/2010. Findings: The paranasal sinuses and mastoid air cells are clear. The calvarium and skull base are int act. The ventricles and sulci are within normal limits. There is no mass, hematoma, midline shift, or acute infarct. The orbits are unremarkable. Impression: No acute intracranial abnormality. ACT 112: Negative or not required by law. Electronically signed by: Dhaval Kelsey M.D. 04/05/2020 8:50 AM
[2020-04-05 08:52] LABS: Partial Thromboplastin Time 27.2 Seconds (21.0-31.0); Prothrombin Time 10.7 Seconds (9.0-12.0)
--- NOTE | 2020-04-05 08:53 | CT Scan Report ---
CT ANGIOGRAM OF THE BRAIN; CT ANGIOGRAM OF THE NECK CLINICAL HISTORY: Right-sided weakness. COMPARISON STUDY: Unenhanced CT of the brain performed concurrently on 04/05/2020. TECHNIQUE: Following the IV administration of 120 of Optiray 320, CT angiogram of the head and neck w as performed from the aortic arch to the vertex. Images are reviewed in the axial, sagittal, and aimee nal planes. 3-D MIPS images are created and assessed. IV contrast was administered without complicati on. All measurements were calculated based on NASCET criteria. A dose lowering technique was utilize d adhering to the principles of ALARA. CT DOSE: 1081.37 mGy.cm FINDINGS: Brain parenchyma: The brain parenchyma is normal in appearance. There is no hemorrhage, mass effect, or evidence of acute territorial ischemia by CT criteria. There is no evidence of enhancing mass lesi on on the angiogram phase images. The ventricles, sulci, and cisterns are normal in configuration. Gr ay-white matter differentiation is preserved. No extra-axial fluid collection is seen. Thoracic aorta: Visualized portions of the thoracic aorta are normal in caliber. The aortic arch demo nstrates standard 3-vessel anatomy. Right carotid arterial system: The right common carotid artery is widely patent, as are the right int ernal and external carotid arteries. Left carotid arterial system: The left common carotid artery is widely patent, as are the left internal medicine nurse practitioner al and external carotid arteries. Vertebral arteries: The vertebral arteries are widely patent bilaterally and codominant. Subclavian arteries: Widely patent bilaterally. Intracranial vasculature: The eagle of [place] is developmentally complete. The internal carotid cynthia alexis are patent at the skull base, as are the anterior and middle cerebral arteries bilaterally. The vertebrobasilar system and posterior cerebral arteries are widely patent. The vertebral arteries are codominant. There is no aneurysm, high-grade stenosis, or focal vessel cut off seen throughout the in tracranial circulation. Jugular veins: Patent bilaterally. Dural sinuses: Patent. Lung apices: Partially visualized upper lobe lung parenchyma appears clear. Soft tissues: The visualized pharyngeal soft tissues are normal in appearance noting angiographic pha se technique. The oropharyngeal airway appears widely patent. The salivary and thyroid glands are nor mal in appearance. No cervical lymphadenopathy is seen. Skeletal structures: The calvarium appears intact. The cervical spine is within normal limits. Orbits: The bony orbits are intact. Orbital contents are normal as visualized. Sinuses and mastoids: The paranasal sinuses are clear. The mastoid air cells are well pneumatized. IMPRESSION: 1. There is no hemorrhage, mass effect, or evidence of acute territorial ischemia by CT criteria noti ng angiographic phase technique. 2. Unremarkable CT angiogram of the brain. 3. Unremarkable CT angiogram of the neck. ACT 112: Negative or not required by law. Electronically signed by: Craig Patiño M.D. 04/05/2020 8:52 AM
--- NOTE | 2020-04-05 08:54 | XRay Report ---
SINGLE VIEW CHEST CLINICAL HISTORY: Strokelike symptoms. FINDINGS: An AP, portable, upright chest radiograph is compared to study dated 03/03/2013. The cardiom ediastinal silhouette is unremarkable. The lungs and pleural spaces are clear. No pneumothorax is see n. The bony thorax is grossly intact. IMPRESSION: No active disease in the chest. ACT 112: Negative or not required by law. Electronically signed by: Craig Patiño M.D. 04/05/2020 8:52 AM
[2020-04-05 09:06] LABS: Alanine Aminotransferase 17 U/L (12-78); Albumin Level 3.8 gm/dl (3.4-5.0); Aspartate Aminotransferase 15 U/L (15-37); BUN Creatinine Ratio 11.6 (10-20); Blood Urea Nitrogen 10 mg/dl (7-18); Calcium 9.2 mg/dl (8.5-10.1); Carbon Dioxide 28 mmol/L (21-32); Chloride 106 mmol/L (98-107); Creatinine Clr Calc Pharmacy 100.6 ml/min; Est GFR (African American) 104.3; Glucose 94 mg/dl (70-99); Potassium 3.8 mmol/L (3.5-5.1); Sodium 140 mmol/L (136-145)
[2020-04-05] MEDS ORDERED: TPA for Stroke IV STA (09:07)
[2020-04-05 09:10] LABS: Albumin Globulin Ratio 0.9 (0.9-2); Alkaline Phosphatase 57 U/L (45-117); Bilirubin,Total 1.3 mg/dl (0.2-1); Globulin 4.1 gm/dl (2.5-4.0); Total Protein 7.9 gm/dl (6.4-8.2); Troponin I < 0.015 ng/ml (0-0.045)
[2020-04-05] MEDS ORDERED: Alteplase Bolus 7 MG in SYRINGE 0 ML IV ONE (09:19)
[2020-04-05] MEDS ORDERED: ALTEPLASE, RECOMBINANT 62 MG in EMPTY BAG 0 ML IV ONE (09:20)
[2020-04-05] MEDS ORDERED: PRIMARY PLUMSET, PE LINED TUBING, 113 IN, NON-DEHP (2260-0500) IV ONE (09:20)
--- NOTE | 2020-04-05 09:40 | Communication Note ---
Date of Service: April 05, 2020 This patient was seen in concert with Dr. Escalante and we discussed and agreed upon the history, physical, assessment, and plan. See attending's note for details. Resident Activity Tracking Resident Involvement: Resident Care Provided Care Provided: Adult ED
--- NOTE | 2020-04-05 11:18 | History & Physical Report ---
Date of Service April 05, 2020 Assessment & Plan (1) Stroke-like symptoms: This is a 34-year-old female with PMH of chronic lower back pain and anxiety who presents after acute onset of right upper extremity weakness this morning. -Stoke alert was called. Dr. Martinez from [place] [facility] recommended administration of tPA for persisting right upper extremity weakness and paresthesias -Symptoms improving over the past 1.5 hours, per patient -Head CT without acute intracranial abnormality. Unremarkable CTA head/neck -Check MRI brain w/wo, echo w/ bubble study -Consulted Dr. Chavez of neurology and discussed possibility of transfer to tertiary care center. [facility] feels patient can be safely managed here at this time but are available for consultation should condition change -Discussed with Dr. Oliveira, who accepted patient for monitoring in ICU -Neuro checks, PT, OT, speech therapy evaluations (2) Chronic lower back pain: Methocarbamol and tramadol PRN (3) Anxiety: Not on any home medications DVT Ppx: Receiving tPA Code status: FULL PCP: Jocelynn Dispo: Admitted to ICU Patient seen in collaboration with Dr. Curtis. Please see addendum. History of Present Illness Chief Complaint: Right-sided weakness Primary Care Provider: Lucio Cabezas MD This is a 34-year-old female with PMH of chronic lower back pain and anxiety who presents after acute onset of right upper extremity weakness this morning. Patient was driving to a doctor appointment for routine lab work at 8 AM when she developed acute onset weakness of right upper extremity. Also endorses paresthesias that felt hot at first, then felt like her arm was asleep and tingly. Describes it as if "upper arm had Novocain". Patient pulled over and called 911 was brought to ED for further evaluation. [place] [facility] was called for stroke alert and due to neuro deficit with right upper extremity weakness, recommended tPA administration. Denies any history of tobacco use, diabetes or heart disease. No personal history of blood clots or family history of early stroke. Does have history of infrequent migraines but they have not been complex or involved weakness or paresthesias in the past. Only past medical history is chronic back pain from L5-S1 for which she takes occasional tramadol or methocarbamol. Does endorse some weakness of right lower extremity as result of this disc disease. During my time of evaluation, weakness and paresthesias of right upper extremity have been resolving. Still feels some paresthesias in right pinky extended up towards the wrist. Denies any speaking or swallowing problems. No diplopia or photophobia. No fever, chills, headache, lightheadedness, chest pain, palpitation, shortness of breath, nausea, vomiting, abdominal pain, dysuria, diarrhea or constipation. Allergies Allergy/AdvReac Type Severity Reaction Status Date / Time lidocaine Allergy Intermediate Entire Verified 04/05/20 09:28 body numbness Cipro Allergy Mild SEVERE Verified 01/22/18 15:28 TOTAL BODY RASH ciprofloxacin Allergy Mild SEVERE Verified 04/05/20 09:28 TOTAL BODY RASH Home Medications Home Medications Medication Instructions Recorded Confirmed Type methocarbamol 750 mg PO Q8 PRN 05/06/18 04/05/20 History tramadol 50 mg PO Q6 PRN 05/06/18 04/05/20 History Past Med/Surg History Medical History (Updated 04/05/20 @ 15:41 by Amelia Wells MD) Anxiety Chronic lower back pain UV keratitis Surgical History H/O thumb surgery H/O: hysterectomy [place] teeth extracted Family History Other Breast cancer Diabetes Hypertension Social History Smoking Status: Never smoker Second Hand Exposure: No; Do You Dip or Chew Tobacco: No; Tobacco Cessation Education Requested by Patient: No Hx Alcohol Use: Yes Alcohol type: beer Alcohol Intake Frequency: 4 or More x per/Week Hx Substance Use: No Preferred Language: Bangladeshi Communication Ability: Effective Communication Ability Comment: improving strength Traffic Engineer Required: No Beliefs That Will Affect Care: None Current Living Situation: Alone Other Information That Helps Us Care for You: No Feels Safe at Home: Yes Safety Concerns: Feels Safe At This Time Assistive Devices: None Review of Systems Review of Systems: At least ten systems reviewed and negative except as noted in the HPI. Physical Exam Physical Exam: General Appearance: WD/WN, vitals as above, NAD, sitting up in bed, pleasant, conversing easily Head: normocephalic, atraumatic Eyes: normal inspection, PERRL, conjunctivae normal, anicteric sclerae ENT: external ear and nose normal, oropharynx normal Neck: normal visual inspection, trachea midline, no thyromegaly Respiratory: normal respiratory effort, lungs clear to auscultation, no wheeze, rales, rhonchi. No accessory muscle use Cardiovascular: regular rate, rhythm, no murmur, normal peripheral pulses, no BLE edema. Vessels: no JVD Chest: normal inspection of chest Abdomen/GI: normal bowel sounds, soft, nontender, no hepatosplenomegaly Extremities/Musculoskeletal: no cyanosis or clubbing, RUE 4/5 and RLE 4/5, LUE and LLE 5/5 Neurologic: PERRL, EOMI, accommodation nl, no face palsy, no dysarthria, CN's II-XI intact bilaterally and moves all extremities Psychiatric: A+Ox3, euthymic affect Skin: no rashes, normal color, warm/dry Results & Data Results & Data ([facility]) Vital Signs (Past 12 Hours) Vital Signs Temp Pulse Pulse Resp BP BP Pulse Ox 04/05/20 11:05 78 16 121/80 99 04/05/20 11:01 78 15 98 04/05/20 11:00 77 15 119/74 96 04/05/20 10:50 77 80 16 112/73 112/73 97 04/05/20 10:45 74 17 115/70 98 04/05/20 10:36 71 14 110/78 98 04/05/20 10:35 70 16 110/78 98 04/05/20 10:20 78 85 21 136/81 136/81 98 04/05/20 10:15 73 15 124/78 98 04/05/20 10:06 77 14 120/68 96 04/05/20 10:05 78 16 120/68 97 04/05/20 10:00 79 14 125/83 98 04/05/20 09:50 73 83 13 111/74 111/74 96 04/05/20 09:45 78 22 134/82 97 04/05/20 09:35 78 74 13 134/93 134/93 97 04/05/20 09:30 75 23 125/78 98 04/05/20 09:21 75 19 128/84 98 04/05/20 09:20 74 18 128/84 97 04/05/20 09:15 76 19 118/88 04/05/20 09:11 76 16 136/82 100 04/05/20 09:10 79 15 124/82 98 04/05/20 09:06 76 14 132/86 100 04/05/20 09:02 74 12 129/81 100 04/05/20 08:32 95 04/05/20 08:27 103 H 18 136/92 99 04/05/20 08:16 36.7 C 89 16 134/84 99 Laboratory Results Short CBC 04/05/20 Range/Units 08:31 WBC 6.50 (4.8-10.8) K/uL Hgb 14.6 (12.0-16.0) g/dL Hct 43.0 (37-47) % Plt Count 217 (130-400) K/uL BMP 04/05/20 08:31 Sodium 140 Potassium 3.8 Chloride 106 Carbon Dioxide 28 BUN 10 Creatinine 0.85 Glucose 94 Calcium 9.2 Cardiac Enzymes 04/05/20 Range/Units 08:31 Troponin I < 0.015 (0-0.045) ng/ml Liver Function 04/05/20 Range/Units 08:31 Total Bilirubin 1.3 H (0.2-1) mg/dl AST 15 (15-37) U/L ALT 17 (12-78) U/L Alkaline Phosphatase 57 (45-117) U/L Albumin 3.8 (3.4-5.0) gm/dl Diagnostic Findings CT head: Impression: No acute intracranial abnormality. Head CTA: IMPRESSION: 1. There is no hemorrhage, mass effect, or evidence of acute territorial ischemia by CT criteria noting angiographic phase technique. 2. Unremarkable CT angiogram of the brain. 3. Unremarkable CT angiogram of the neck. Neck CTA: IMPRESSION: 1. There is no hemorrhage, mass effect, or evidence of acute territorial ischemia by CT criteria noting angiographic phase technique. 2. Unremarkable CT angiogram of the brain. 3. Unremarkable CT angiogram of the neck. CXR: IMPRESSION: No active disease in the chest. ECG Additional Comments: Normal sinus rhythm Possible Left atrial enlargement Rightward axis Cannot rule out Anterior infarct , age undetermined Code Status & VTE Plan VTE Prophylaxis Plan VTE Prophylaxis will be ordered: Yes Supervising Physician Co-Signing Physician Notes Pt was seen and examined. Agreed with Kathi CHAVARRIA exam, assessment and plan. 34-year-old female with PMH of chronic lower back pain, migraine and anxiety who presents to the ER for right side numbness and weakness. Pt said that she was driving this morning when she developed right side upper and lower extremities weakness and numbness associated with right sided facial numbness as well. Pt said that she pulled over and called 911 and was brought to the ER. Pt said that she has history of migraine but never had any symptoms like that in the past. Denies any used of hormonal contraception or tobacco abuse. Stroke alert was called and was assessed by the [place] neuro tele that recommended to administer TPA. CT head on admission showed no acute intracranial abnormality. CTA head/neck showed no hemorrhage, mass effect, or evidence of acute territorial ischemia. Currently pt said that her symptoms improved significantly. On exam: pt is not in acute distress, AAOx3, speech fluent, EOM intact, follow direction, moves all 4 extremities, decrease sensation in right upper/lower extremities along with right sided facial area, mild decrease in strength 4/5 in upper an lower. Denies any chest pain, palpitation, dizziness and SOB. Will consult Neuro/PT/OT and speech. Will get a resting echo. Will get a Brain MRI. Will monitor in the ICU due to TPA administered in the ER. MD Ever
[2020-04-05] MEDS ORDERED: ICU PROTOCOL FOR HYPERGLYCEMIA PRN (13:02)
[2020-04-05] MEDS ORDERED: PHARMACIST DISCHARGE MED REC CONSULT PRN (13:02)
[2020-04-05] MEDS ORDERED: LORazepam 0.5 MG TAB PO STA (13:27)
--- NOTE | 2020-04-05 15:29 | Critical Care Consultation ---
Date of Consultation April 05, 2020 Assessment & Plan (1) Admitted to intensive care unit: Reason Critically Ill: 34 yo F admitted to the ICU for 24 hour neurologic monitoring after systemic tPA administration for possible ischemic stroke. Neuro: [facility] ICU: Negative * Concern for ischemic stroke - patient presented with R UE and LE paraesthesias and weakness within tPA window - stoke alert was called on arrival to ED - Non-contrast head and C-spine CT were negative for acute bleed - NIH stroke scale score on admission of 5 - telestroke consult recommend tPA administration - tPA administered at 9:20 am on 04/05/20 - neuro checks per protocol - Brain MRI with and without contrast ordered - ECHO with bubble study ordered - HbA1c and lipid panel ordered - Speech, PT/OT ordered * Chronic low back pain - patient reports lumbar disc issues at L5-S1; chronic R leg radicular symptoms - takes tramadol and methocarbamol on a prn basis Cardiac: - no history of cardiovascular disease - EKG on admission showing NSR without ST segment changes. Right Omega deviation with a late transition (at V5) Respiratory: - no history of underlying lung disease - CXR normal on admission - breathing well on room air GI: - NPO until speech eval RENAL/LYTES: - Creatinine and electrolytes normal on admission : - no issues ENDO: - no history of thyroid or diabetes HEME: - Hgb normal on admission ID: - WBC normal on admission - Nasal MRSA swab neg - COVID 19 neg LINES/IV ACCESS: R AC and L AC CODE STATUS: Full DVT PROPHYLAXIS: SCDs, chemoprophylaxis contraindicated in setting of systemic tPA administration Thank you for allowing us to participate in the care of this patient. Please refer to my attending physician's documentation for any further recommendations. Supervising Physician Co-Signing Physician Notes Dr. Wells Was the resident-physician during care of patient. I separately evaluated patient for mcqueen portions of the history and the exam. I was present during the critical portion of medical decision making, and I discussed the case with the resident. I generally agree with the findings and plan except for any additions/exceptions noted. Patient seen and examined at bedside. No acute distress, no adverse events after coming to the hospital. Patient is in the ICU s/p TPA. Patient does have a history of migraine. She had tingling sensation in the right lower extremity with started actually yesterday night. She does have history of sciatica. This was followed by tingling and numbness on the right leg on the right flank as well as right arm in the face. Which was followed by weakness. This happened while she was driving a car. She never had anything like this before. 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 Never had any weakness like this before. Patient had a CT head which was negative. She also had an MRI following that which was negative. Chest x-ray shows hyperinflated lungs but no evidence of any infiltrate. Patient denies any personal or family history of asthma. Patient is in the ICU status post TPA. Monitor blood pressure. Keep it less than 180/105. Continue with neurochecks. Aspiration precautions. Echo did not show any emboli. 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 Neurology on board. Follow recommendations I have personally spent 41 minutes of critical care time in the direct management of this patient. This is a life/limb threatening event. This includes time spent evaluating patient, direct bedside care, chart review, placing orders, interpretation of diagnostic studies, discussion with consultants, patient, and/or family members regarding treatment decisions, as well as other required patient management activities. This time is exclusive of all separately billable procedures, and teaching time and separate from and in addition to any other critical care service time. History of Present Illness Reason for Consultation: Indu is a 34 yo F who presented to the [facility] ED today for evaluation of sudden onset right sided paresthesias and weakness. While driving to the [facility] to have routine labs drawn this morning, she noticed the entire right side of her body began to feel very warm - she subsequently developed paresthesias of her R arm and face (she likened the sensation to a Novocaine injection). She also endorsed right lower extremity numbness and weakness, however, she noticed this sensation last evening. She has a history of lumbar disc disease and radicular symptoms fo the R leg, thus, her right lower extremity symptoms intermittently affect her at baseline. On arrival to the ED a stroke alert was called. A telestroke consult was done with a physician at [facility] - based on her NIH stroke scale score, the stroke neurologist recommended administration of systemic tPA. A non-contrast cat scan of the head and cervical spine were ordered, both returned as negative for acute hemorrhage. tPA was then given at 9:20 am on 04/05/20. Patient was transferred to the ICU for 24 hr monitoring after tPA administration. On arrival to the ICU, patient reports the paresthesias and weakness of her right upper and lower extremities and face have resolved. She denies onset of any new symptoms. She does have a history of prolonged bleeding after a LEEP procedure at [facility]. Patient is a non-smoker. She is not on a hormonal contraceptive. There is no family history of strokes or blood clots. Attending Physician: Maria De Jesus Curtis MD Allergies Allergy/AdvReac Type Severity Reaction Status Date / Time lidocaine Allergy Intermediate Entire Verified 04/05/20 09:28 body numbness Cipro Allergy Mild SEVERE Verified 01/22/18 15:28 TOTAL BODY RASH ciprofloxacin Allergy Mild SEVERE Verified 04/05/20 09:28 TOTAL BODY RASH Home Medications Home Medications Medication Instructions Recorded Confirmed Type methocarbamol 750 mg PO Q8 PRN 05/06/18 04/05/20 History tramadol 50 mg PO Q6 PRN 05/06/18 04/05/20 History Patient History Medical History (Updated 04/05/20 @ 15:41 by Amelia Wells MD) Anxiety Chronic lower back pain UV keratitis Surgical History H/O thumb surgery H/O: hysterectomy [place] teeth extracted Family History Other Breast cancer Diabetes Hypertension Social History Smoking Status: Never smoker Second Hand Exposure: No; Do You Dip or Chew Tobacco: No; Tobacco Cessation Education Requested by Patient: No Hx Alcohol Use: Yes Alcohol type: beer Alcohol Intake Frequency: 4 or More x per/Week Hx Substance Use: No Preferred Language: Korean Communication Ability: Effective Communication Ability Comment: improving strength Detective 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: No Beliefs That Will Affect Care: None Current Living Situation: Alone Other Information That Helps Us Care for You: No Feels Safe at Home: Yes Safety Concerns: Feels Safe At This Time Assistive Devices: None Review of Systems Review of Systems: All systems reviewed & are unremarkable except as noted in HPI & below Physical Exam Constitutional: WD/WN, vitals as above cooperative; no acute distress Eyes: + anicteric sclerae and + nystagmus (1 beat of horizontal nystagmus when looking to the right) ENMT: external ear and nose normal, oropharynx normal Neck: normal visual inspection and trachea midline Respiratory: normal respiratory effort, lungs clear to auscultation Auscultation: no crackles, no rales, no rhonchi and no wheezes Cardiovascular: RRR, no murmur, no edema Heart Sounds: normal S1 and normal S2 Vessels: normal carotid upstroke; no carotid bruit Extremities: no pedal edema Gastrointestinal (Abdomen): normal bowel sounds, soft, nontender, no hepatosplenomegaly Musculoskeletal: Head/Neck/Chest: normocephalic and head atraumatic Skin: no rashes, warm and dry tattoos on back Neurologic: PERRL, EOMI, accommodation nl, no face palsy, no dysarthria CN's II-XI intact bilaterally and moves all extremities Speech / Cognition: normal speech Sensation: Intact and symmetric to light touch on bilateral upper and lower extremities. Motor: Muscle tone and bulk normal and symmetric throughout. On L strength 5/5 with elbow flexion and extension. On R strength 4+/5 with elbow flexion and extension. Psychiatric: A+Ox3, euthymic affect Results & Data Results & Data ([facility]) Vital Signs (Past 12 Hours) Vital Signs Temp Pulse Pulse Resp BP BP Pulse Ox 04/05/20 14:50 74 04/05/20 14:20 76 16 110/84 04/05/20 13:50 76 16 124/84 98 04/05/20 13:20 79 16 122/74 98 04/05/20 12:50 80 16 129/81 98 04/05/20 12:21 114 H 16 126/88 98 04/05/20 12:20 95 H 16 126/88 98 04/05/20 12:15 76 19 115/84 97 04/05/20 12:00 76 14 113/76 98 04/05/20 11:50 74 79 14 110/71 110/71 98 04/05/20 11:46 77 15 110/72 98 04/05/20 11:30 70 13 109/75 97 04/05/20 11:20 78 78 17 120/71 120/71 97 04/05/20 11:15 75 14 113/73 98 04/05/20 11:05 89 78 16 121/80 121/80 98 04/05/20 11:01 78 15 98 04/05/20 11:00 77 15 119/74 96 04/05/20 10:50 77 80 16 112/73 112/73 97 04/05/20 10:45 74 17 115/70 98 04/05/20 10:36 71 14 110/78 98 04/05/20 10:35 70 16 110/78 98 04/05/20 10:20 78 85 21 136/81 136/81 98 04/05/20 10:15 73 15 124/78 98 04/05/20 10:06 77 14 120/68 96 04/05/20 10:05 78 16 120/68 97 04/05/20 10:00 79 14 125/83 98 04/05/20 09:50 73 83 13 111/74 111/74 96 04/05/20 09:45 78 22 134/82 97 04/05/20 09:35 78 74 13 134/93 134/93 97 04/05/20 09:30 75 23 125/78 98 04/05/20 09:21 75 19 128/84 98 04/05/20 09:20 74 18 128/84 97 04/05/20 09:15 76 19 118/88 04/05/20 09:11 76 16 136/82 100 04/05/20 09:10 79 15 124/82 98 04/05/20 09:06 76 14 132/86 100 04/05/20 09:02 74 12 129/81 100 04/05/20 08:32 95 04/05/20 08:27 103 H 18 136/92 99 04/05/20 08:16 36.7 C 89 16 134/84 99 Resident Activity Tracking Resident Involvement: Resident Care Provided Care Provided: Adult Hospital Medicine
--- NOTE | 2020-04-05 15:34 | Neurology Consultation ---
Date of Consultation April 05, 2020 Assessment & Plan (1) Stroke-like symptoms: 1. tPa given will need CT head 24 hours after infusion 2. may start aspirin [address] head confirms no hemorrhage 3. CTA head/neck normal 4. MRI brain with and without pending offical read 5. TTE-with bubble study- pending read 6. optimize HTN HLD LDL <70 7. PT/OT for discharge needs 8. hypercoag labs- ordered 9. if right side persists weakness, may need MRI c/t/l spine 10. further recommendations to follow (2) Anxiety: Supervising Physician Co-Signing Physician Notes I have seen and discussed above patient with Dr Josie Chavez, neurology. PT seen and examined, see my dictated note. DOMINGA Chavez MD History of Present Illness Reason for Consultation: stroke alert Requesting Physician: Maria De Jesus Curtis MD Attending Physician: Maria De Jesus Curtis MD History of Present Illness connected with Dr Josie Chavez via [employer] telemed. Indu is a 34 year old female with PMH- chronic lower back pain and anxiety who presents after acute onset of right upper extremity weakness this morning. She was driving to a doctor appointment for routine lab work at 8 AM when she developed acute onset weakness of right upper extremity and paresthesias of hot feeling and the asleep and tingly, a novocaine feeling. She pulled her car over and called 911. [facility] was called for stroke alert and due to neuro deficit with right upper extremity weakness, they recommended tPa administration. Does have history of infrequent migraines but they have not been complex or involved weakness or paresthesias in the past. She does have chronic back pain from L5-S1 for which she takes occasional tramadol or methocarbamol. She has known weakness of the RLE from the pain. no family history of blood clotting, heart attack, stroke. denies CP, SOB, abdominal pain, vision changes, headache, swallowing issues, N, V. right sided numbness improved with tPa but still some numbness tinglining down arm into hand, right leg numbness weakness. hysterectomy due to cervical CA Allergies Allergy/AdvReac Type Severity Reaction Status Date / Time lidocaine Allergy Intermediate Entire Verified 04/05/20 09:28 body numbness Cipro Allergy Mild SEVERE Verified 01/22/18 15:28 TOTAL BODY RASH ciprofloxacin Allergy Mild SEVERE Verified 04/05/20 09:28 TOTAL BODY RASH Home Medications Home Medications Medication Instructions Recorded Confirmed Type methocarbamol 750 mg PO Q8 PRN 05/06/18 04/05/20 History tramadol 50 mg PO Q6 PRN 05/06/18 04/05/20 History Patient History Medical History (Updated 04/05/20 @ 15:41 by Amelia Wells MD) Anxiety Chronic lower back pain UV keratitis Surgical History H/O thumb surgery H/O: hysterectomy [place] teeth extracted Family History Other Breast cancer Diabetes Hypertension Social History Smoking Status: Never smoker Second Hand Exposure: No; Do You Dip or Chew Tobacco: No; Tobacco Cessation Education Requested by Patient: No Hx Alcohol Use: Yes Alcohol type: beer Alcohol Intake Frequency: 4 or More x per/Week Hx Substance Use: No Preferred Language: Georgian Communication Ability: Effective Communication Ability Comment: improving strength Bilingual Executive Assistant Required: No Beliefs That Will Affect Care: None Current Living Situation: Alone Other Information That Helps Us Care for You: No Feels Safe at Home: Yes Safety Concerns: Feels Safe At This Time Assistive Devices: None Review of Systems Review of Systems: All systems reviewed & are unremarkable except as noted in HPI & below and All systems reviewed & are unremarkable except as noted in Subjective Physical Exam Physical Exam: Physical Exam: Constitutional: appearance nourished, healthy and normal Ears, Nose, Mouth and Throat: mucous membranes moist, no injection and skin normal, eyes normal Cardiovascular: normal S-1 and S-2 and regular rate and rhythm Respiratory: clear to auscultation (CTA) and no rales, ronchi or wheeze Musculoskeletal: no peripheral edema and good distal pulses Skin: no stigmata of neurocutaneous disease noted and normal and intact Eyes: extraocular muscles intact (EOMI) and pupils equal, round and reactive to light (PERRL) NEUROLOGIC EXAMINATION: Mental status: Alert and interactive Oriented to full date and location Oriented to person Speech fluent with no evidence of aphasia Cranial Nerves Normal findings for Cranial Nerves II - XII Reflexes: Deep tendon reflexes were symmetrical and graded 2/5. down going toes. Sensory: light touch less on right arm face, vibration intact but decrease on right GT Coordination: finger to nose intact, heel to moore intact slightly clumsy on right, +islas sign Gait/Stance: Posture normal sitting up in bed Motor: Negative for pronator drift of out stretched arms with eyes closed. Strength: hand fur ironer biceps triceps left 5/5 right 4+/5, hip flex right 4/5, left 5/5,plantar flex ext right 4/5, left 5/5 Results & Data ([facility]) Vital Signs (Past 12 Hours) Vital Signs Temp Pulse Pulse Resp BP BP Pulse Ox 04/05/20 14:50 74 04/05/20 14:20 76 16 110/84 04/05/20 13:50 76 16 124/84 98 04/05/20 13:20 79 16 122/74 98 04/05/20 12:50 80 16 129/81 98 04/05/20 12:21 114 H 16 126/88 98 04/05/20 12:20 95 H 16 126/88 98 04/05/20 12:15 76 19 115/84 97 04/05/20 12:00 76 14 113/76 98 04/05/20 11:50 74 79 14 110/71 110/71 98 04/05/20 11:46 77 15 110/72 98 04/05/20 11:30 70 13 109/75 97 04/05/20 11:20 78 78 17 120/71 120/71 97 04/05/20 11:15 75 14 113/73 98 04/05/20 11:05 89 78 16 121/80 121/80 98 04/05/20 11:01 78 15 98 04/05/20 11:00 77 15 119/74 96 04/05/20 10:50 77 80 16 112/73 112/73 97 04/05/20 10:45 74 17 115/70 98 04/05/20 10:36 71 14 110/78 98 04/05/20 10:35 70 16 110/78 98 04/05/20 10:20 78 85 21 136/81 136/81 98 04/05/20 10:15 73 15 124/78 98 04/05/20 10:06 77 14 120/68 96 04/05/20 10:05 78 16 120/68 97 04/05/20 10:00 79 14 125/83 98 04/05/20 09:50 73 83 13 111/74 111/74 96 04/05/20 09:45 78 22 134/82 97 04/05/20 09:35 78 74 13 134/93 134/93 97 04/05/20 09:30 75 23 125/78 98 04/05/20 09:21 75 19 128/84 98 04/05/20 09:20 74 18 128/84 97 04/05/20 09:15 76 19 118/88 04/05/20 09:11 76 16 136/82 100 04/05/20 09:10 79 15 124/82 98 04/05/20 09:06 76 14 132/86 100 04/05/20 09:02 74 12 129/81 100 04/05/20 08:32 95 04/05/20 08:27 103 H 18 136/92 99 04/05/20 08:16 36.7 C 89 16 134/84 99 Laboratory Results Abnormal lab results 04/05/20 Range/Units 08:31 Total Bilirubin 1.3 H (0.2-1) mg/dl Globulin 4.1 H (2.5-4.0) gm/dl Diagnostic Findings CTA head/neck-There is no hemorrhage, mass effect, or evidence of acute territorial ischemia by CT criteria noting angiographic phase technique. Unremarkable CT angiogram of the brain. Unremarkable CT angiogram of the neck. MRI brain not officially read- gross read no stroke seen
--- NOTE | 2020-04-05 16:31 | Magnetic Resonance Report ---
Brain MRI WITH AND WITHOUT CONTRAST HISTORY: Foot numbness. stroke eval TECHNIQUE: Multiplanar multisequence MRI of the brain was performed both before and after the intrave nous administration of contrast. COMPARISON STUDY: Head and neck CTA 04/05/2020. FINDINGS: There are no areas of restricted diffusion to suggest acute infarction. The midline structu res are intact. The paranasal sinuses are clear. The mastoid air cells are clear. The ventricles and sulci are within normal limits for age. There is no mass, hematoma, midline shift. The major vascular flow-voids at the skull base are well maintained. Postcontrast sequences show no areas of abnormal e nhancement. IMPRESSION: No acute intracranial abnormality. ACT 112: Negative or not required by law. Electronically signed by: Dhaval Kelsey M.D. 04/05/2020 4:30 PM
--- NOTE | 2020-04-05 16:46 | Electrocardiogram Report ---
Test Reason : Blood Pressure : / mmHG Vent. Rate : 092 BPM Atrial Rate : 092 BPM P-R Int : 158 ms QRS Dur : 074 ms QT Int : 346 ms P-R-T Axes : 070 091 033 degrees QTc Int : 427 ms Normal sinus rhythm Possible Left atrial enlargement Rightward axis Poor R wave progression, consider anterior MD vs. lead placement vs. LVH Abnormal ECG No previous ECGs available Confirmed by Marbin Torres ([id number]) on 04/05/2020 4:46:00 PM Referred By: Confirmed By:Jose Torres
--- NOTE | 2020-04-05 18:14 | Billing Data ---
Date of Service April 05, 2020 Coding Level of Care Code Critical Care 1st 30-74 mins Time Spent (min) 41
--- NOTE | 2020-04-05 21:07 | Progress Notes ---
DATE: 04/05/2020 Please see today's note by Josie Parisi. HISTORY OF PRESENT ILLNESS: The patient has been seen the video by myself and examined via video, history obtained and corroborated as well with Josie Parisi. The patient presented with right hemianesthesia with right-sided weakness, not followed by headache. The patient does have a history of migraine, but has never had any neurologic symptoms accompanying her headache. It does sound as if she had acephalgia migrainous phenomenon in the past. The patient noted the symptoms of sudden onset. She pulled the car over, called 911, eventually driving herself into the hospital, but requiring assistance to walk in because of right-sided weakness. The patient was evaluated by stroke neurology. CTA of the head and neck and CT were unremarkable and she was given TPA, which she has tolerated. Again, she has not developed a headache. The patient was being evaluated for chronic right lower extremity weakness. The patient indicates to me that she has chronically had right lumbar pain which radiates into the right lower extremity to the medial aspect of the right foot with some numbness in the medial aspect of the right foot that has been chronic. The weakness in the right lower extremity has been chronic, but this new event has been superimposed. She has no personal or family history of DVT, PE, early heart disease or stroke. She has no personal history of rheumatic fever, murmur, miscarriage. Had no recent medical or dental procedures, chiropractic manipulation or COVID symptoms. PHYSICAL EXAMINATION: She is awake and alert. There is normal speech and language. Her affect is appropriate. Her naming is normal. There is no facial droop. Motor, upper extremity is full. Right lower extremity appears to be about antigravity, but perhaps less so with the right tibialis anterior. Dipopm-rl-jxis is normal. Aaza-de-bnvp demonstrate better than expected mvix-xr-apmt based on weakness through manual motor testing. The patient did have a positive Tomlinson sign. Sensation according to Josie Parisi with diminished on the right to light touch. Gait was not tested. Reflexes were diminished on the right. Toes were downgoing. IMPRESSION: New onset right hemisensory loss, right hemiparesis without headache, symptoms have improved since having received TPA, but there is residual weakness in the right lower extremity which exceeds the patient's baseline. MRI is normal, this suggests that the differential includes an acephalgic migrainous phenomenon. PLAN: Hypercoagulable state workup. Followup CT and antiplatelet therapy per the TPA protocol. Echocardiography, telemetric monitoring, assessment of lipid status. The patient reported and discussed in more detail with Josie Parisi chronic right lower extremity weakness. [facility] apparently had planned a nerve conduction EMG, which is reasonable. Provided the patient has recovered from her recent neurologic symptoms reexamining her might reveal further localization of thepre-exiating right lower extremity weakness and may warrant further MRI imaging and evaluation. Dr. Swartz will be taking over the service tomorrow and will follow with you. TY
--- NOTE | 2020-04-06 07:27 | Critical Care Progress Note ---
Date of Service April 06, 2020 Assessment & Plan (1) Admitted to intensive care unit: Reason Critically Ill: 34 yo F admitted to the ICU for 24 hour neurologic monitoring after systemic tPA administration for possible ischemic stroke. Brain MRI showed no areas of ischemia. Overnight, patient had no changes to her neurologic exam. Indu will have a repeat non-contrast head CT at 8am this morning - if it shows no evidence of hemorrhage, she is medically ready to be downgraded from the ICU. As for the etiology of her symptoms, work-up was not consistent with ischemic stroke. Patient does have history of migraine with aura, although never with associated unilateral weakness. Of note, patient was not experiencing any head pain at the time of her symptoms. Her right leg symptoms are consistent with her known radiculopathy. 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 Additional incidental finding of mild aortic regurgitation, although no murmur appreciated on auscultation. - HbA1c and lipid panel ordered - hypercoagulability panel ordered - Speech, PT/OT ordered - neurology following, appreciate recommendations * Chronic low back pain - patient reports lumbar disc issues at L5-S1; chronic R leg radicular symptoms - takes tramadol and methocarbamol on a prn basis Cardiac: - no history of cardiovascular disease - EKG on admission showing NSR without ST segment changes. Right Seaview deviation with a late transition (at V5) - incidental ECHO findings as above, likely unrelated to her current presentation Respiratory: - no history of underlying lung disease - CXR normal on admission - breathing well on room air GI: - regular diet RENAL/LYTES: - Creatinine and electrolytes normal on admission : - no issues ENDO: - no history of thyroid or diabetes HEME: - Hgb normal on admission ID: - WBC normal on admission - Nasal MRSA swab neg - COVID 19 neg LINES/IV ACCESS: R AC and L AC CODE STATUS: Full DVT PROPHYLAXIS: SCDs, chemoprophylaxis contraindicated in setting of systemic tPA administration Thank you for allowing us to participate in the care of this patient. Please refer to my attending physician's documentation for any further recommendations. Admission and Anticipated Discharge Date Admission Date: April 05, 2020 Supervising Physician Co-Signing Physician Notes Dr. Wells Was the resident-physician during care of patient. I separately evaluated patient for mcqueen portions of the history and the exam. I was present during the critical portion of medical decision making, and I discussed the case with the resident. I generally agree with the findings and plan except for any additions/exceptions noted. Patient seen and examined at bedside. No acute distress, no adverse events o vernight. Denies any tingling sensation or weakness in any part of the body. No blurry vision, no headache, no nausea, no vomiting. She is tolerating diet. Patient has right lower leg weakness which she had from her underlying sciatica. This is not new. Her CT head as well as MRI were negative. Patient is due for another MRI today. If it is negative patient can be downgraded to medical floor. Hypercoagulable work-up has been ordered yesterday. Primary team will follow it up. Patient does have unconjugated bilirubinemia and patient was totally is symptomatic. With normal LFTs. 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 We will just monitor. This time is exclusive of all separately billable procedures, and teaching time and separate from and in addition to any other critical care service time. Subjective Patient is feeling well this morning. While she continues to have paresthesia in her R leg, right upper extremity and facial symptoms have totally resolved. Review of Systems Neurologic: + numbness (R leg) Physical Exam Constitutional: WD/WN, vitals as above cooperative; no acute distress Eyes: + anicteric sclerae and + nystagmus (1 beat of horizontal nystagmus when looking to the right) ENMT: external ear and nose normal, oropharynx normal Neck: normal visual inspection and trachea midline Respiratory: normal respiratory effort, lungs clear to auscultation Auscultation: no crackles, no rales, no rhonchi and no wheezes Cardiovascular: RRR, no murmur, no edema Heart Sounds: normal S1 and normal S2 Vessels: normal carotid upstroke; no carotid bruit Extremities: no pedal edema Gastrointestinal (Abdomen): normal bowel sounds, soft, nontender, no hepatosplenomegaly Musculoskeletal: Head/Neck/Chest: normocephalic and head atraumatic Skin: no rashes, warm and dry Neurologic: PERRL, EOMI, accommodation nl, no face palsy, no dysarthria CN's II-XI intact bilaterally and moves all extremities Speech / Cognition: normal speech Psychiatric: A+Ox3, euthymic affect Results & Data Results & Data ([facility]) Vital Signs (Past 12 Hours) Vital Signs Temp Pulse Pulse Resp BP Pulse Ox 04/06/20 06:20 36.9 C 72 15 104/62 95 04/06/20 04:20 74 16 109/65 95 04/06/20 03:20 75 16 103/63 95 04/06/20 02:20 65 18 107/59 L 95 04/06/20 01:20 78 14 107/59 L 95 04/06/20 00:20 78 18 97/57 L 95 04/06/20 00:17 80 04/05/20 23:20 37.0 C 77 16 113/69 96 04/05/20 22:20 77 18 104/62 96 04/05/20 21:20 70 16 107/64 96 04/05/20 20:20 78 16 130/82 95 04/05/20 20:17 89 04/05/20 08:31 04/05/20 08:31 Resident Activity Tracking Resident Involvement: Resident Care Provided Care Provided: Adult Hospital Medicine
--- NOTE | 2020-04-06 08:26 | CT Scan Report ---
CT head/brain wo con CLINICAL HISTORY: Acute stroke symptomatology. Follow-up examination. RIGHT-SIDED WEAKNESS COMPARISON STUDY: 04/05/2020 TECHNIQUE: Axial CT of the brain is performed from the vertex to the skull base. IV contrast was not administered for this examination. A dose lowering technique was utilized adhering to the principles of ALARA. CT DOSE: 537.48 mGy.cm FINDINGS: No intra or extra-axial mass lesions are visualized. There is no CT evidence of acute cortical infarc tion. There is no evidence of midline shift. There is no acute hemorrhage. No calvarial fractures ar e visualized. There is no evidence of pathologic ventricular dilatation. There is no evidence of acute sinusitis IMPRESSION: No acute intracranial findings ACT 112: Negative or not required by law. Electronically signed by: Faustino Martinez M.D. 04/06/2020 8:25 AM
--- NOTE | 2020-04-06 09:04 | Billing Data ---
Date of Service April 06, 2020 Coding Level of Care Code 76770 Subseq Hosp Care Lvl 3
[2020-04-06 09:36] LABS: Hematocrit (blood only) 39.9 % (37-47); Hemoglobin 13.6 g/dL (12.0-16.0); Mean Corpuscular Hgb Conc 34.1 g/dL (32-36); Mean Corpuscular Volume 90.9 fL (80-100); Platelet Count 193 K/uL (130-400); RDW Coefficient of Variation 12.6 % (11.5-14.5); RDW Standard Deviation 41.9 fL (36.4-46.3); Red Blood Count 4.39 M/uL (4.2-5.4); White Blood Count 5.48 K/uL (4.8-10.8)
[2020-04-06 09:58] LABS: BUN Creatinine Ratio 16.8 (10-20); Calcium 8.6 mg/dl (8.5-10.1); Creatinine Clr Calc Pharmacy 108.3 ml/min; Est GFR (Non-African American) 98.4; Potassium 3.9 mmol/L (3.5-5.1)
[2020-04-06 11:25] LABS: Estimated Average Glucose 94 mg/dl; Hemoglobin A1C 4.9 % (4.5-5.6)
--- NOTE | 2020-04-06 12:25 | Hospitalist Progress Note ---
Date of Service April 06, 2020 Assessment & Plan (1) Stroke-like symptoms: This is a 34-year-old female with PMH of chronic lower back pain and anxiety who presents after acute onset of right upper extremity weakness this morning. -Stoke alert was called. Dr. Martinez from [facility] recommended administration of tPA for persisting right upper extremity weakness and paresthesias -Symptoms improving over the past 1.5 hours, per patient -Head CT without acute intracranial abnormality. Unremarkable CTA head/neck -Check MRI brain w/wo, echo w/ bubble study -Consulted Dr. Chavez of neurology and discussed possibility of transfer to tertiary care center. [facility] feels patient can be safely managed here at this time but are available for consultation should condition change -Discussed with Dr. Oliveira, who accepted patient for monitoring in ICU -Neuro checks, PT, OT, speech therapy evaluations (2) Chronic lower back pain: Methocarbamol and tramadol PRN (3) Anxiety: Not on any home medications DVT Ppx: Receiving tPA Code status: FULL PCP: Jocelynn Dispo: Admitted to ICU Patient seen in collaboration with Dr. Curtis. Please see addendum. Admission and Anticipated Discharge Date Admission Date: April 05, 2020 Results & Data Results & Data ([facility]) Vital Signs (Past 12 Hours) Vital Signs Temp Pulse Pulse Resp BP BP Pulse Ox 04/06/20 09:20 36.8 C 95 H 16 117/65 98 04/06/20 08:20 37.0 C 75 19 114/71 98 04/06/20 07:20 36.9 C 77 19 116/68 98 04/06/20 06:20 36.9 C 72 15 104/62 95 04/06/20 05:24 66 24 79/51 L 04/06/20 05:20 75 20 04/06/20 05:15 70 21 04/06/20 04:20 74 16 109/65 95 04/06/20 03:20 75 16 103/63 95 04/06/20 02:20 65 18 107/59 L 95 04/06/20 01:20 78 14 107/59 L 95 Laboratory Results Short CBC 04/06/20 Range/Units 09:26 WBC 5.48 (4.8-10.8) K/uL Hgb 13.6 (12.0-16.0) g/dL Hct 39.9 (37-47) % Plt Count 193 (130-400) K/uL BMP 04/06/20 09:26 Sodium 140 Potassium 3.9 Chloride 108 H Carbon Dioxide 27 BUN 13 Creatinine 0.79 Glucose 93 Calcium 8.6 Medications Administered Current Inpatient Medications Magnesium Oxide (Magnesium Oxide 400 Mg Tab) 400 mg PO QAM [facility] Stop: 05/06/20 12:29 Miscellaneous (Icu Protocol For Hyperglycemia) 1 ea N/A PRN PRN; Protocol PRN Reason: Hyperglycemia Protocol Stop: 04/07/20 13:01 Miscellaneous Information (Pharmacist Discharge Med Rec Consult) 1 ea N/A UD PRN PRN Reason: Consult Stop: 05/05/20 13:01 Vitamin B Complex (Vitamin B Complex Tab) 1 tab PO [facility] Stop: 05/06/20 12:29
[2020-04-06] MEDS ORDERED: VITAMIN B COMPLEX TAB PO SCH (12:30)
[2020-04-06] MEDS ORDERED: MAGNESIUM OXIDE 400 MG TAB PO SCH (12:30)
--- NOTE | 2020-04-06 13:53 | Neurology Progress Note ---
Date of Service April 06, 2020 Assessment & Plan (1) Stroke-like symptoms: 1. tPa given will need CT head 24 hours after infusion 2. may start aspirin [address] head confirms no hemorrhage 3. CTA head/neck normal 4. MRI brain with and without- no acute findings 5. TTE-with bubble study- NO ASD 6. optimize HTN HLD LDL <70 7. PT/OT for discharge needs 8. hypercoag labs- pending 9. continue riboflavin 400 mg and mg++ox 400 mg daily also offer further medical management which she is declining at this time 10. neurology follow up in 4-6 weeks with Josie Praisi PAC or with CT neurology 11. ok to discharge to home. (2) Anxiety: Admission and Anticipated Discharge Date Admission Date: April 05, 2020 Supervising Physician Co-Signing Physician Notes I have seen and discussed above patient with Dr Osmin Swartz, neurology I have reviewed the above note, discussed the plans with Josie Parisi PA-C and have examined the patient briefly in the presence of Dr. Obrien who is her current hospitalist and both of us are in agreement discharged today is appropriate. She has some residual weakness of the right leg but this is a problem she has had before due to L5 motor radicular disease and at this point the diagnosis of a hemiplegic or at least complicated migraine seems appropriate pending of course review of the hypercoagulability studies which will be pending for some time She has headaches about once per week some of them associated with visual aura but this is a unique type of migraine and hopefully will not recur but because of this we are going to recommend she take a single baby aspirin a day and riboflavin and magnesium oxide as attempt to prevent further migraines release cut down the frequency of her current headaches She is going to consider where she wants to be seen for neurologic follow-up. [facility] and at the time of this dictation I [facility] we may be able to see her at [facility] and if she elects to do this Josie Parisi PA-C and myself could easily see her as a hospital follow-up and decide based on her response to magnesium oxide and riboflavin and aspirin, whether or not further preventative medications might be required and would be able to review the results of the hypercoagulable profile. Dr. Obrien is going to obtain a lupus screen or suggest one be done just for sake of completeness At this point then neurology is going to sign off the case she is going to be discharged and we will see her in the future as needed based on how she wants to have her neurologic issues followed Osmin Swartz MD Clem Griggs is a 34 year old female with PMH- chronic lower back pain and anxiety who presents after acute onset of right upper extremity weakness this morning. She was driving to a doctor appointment for routine lab work at 8 AM when she developed acute onset weakness of right upper extremity and paresthesias of hot feeling and the asleep and tingly, a novocaine feeling. She pulled her car over and called 911. [facility] was called for stroke alert and due to neuro deficit with right upper extremity weakness, they recommended tPa administration. Does have history of infrequent migraines but they have not been complex or involved weakness or paresthesias in the past. She does have chronic back pain from L5-S1 for which she takes occasional tramadol or methocarbamol. She has known weakness of the RLE from the pain. no family history of blood clotting, heart attack, stroke. hysterectomy due to cervical CA She is up and moving around this am. She is still having right LE weakness but she states it is back to her baseline. Her face arm and leg numbness has resolved. denies CP, SOB, abdominal pain, vision changes, headache, swallowing issues, N, V. Physical Exam Physical Exam: Physical Exam: Constitutional: appearance nourished, healthy and normal Ears, Nose, Mouth and Throat: mucous membranes moist, no injection and skin normal, eyes normal Cardiovascular: normal S-1 and S-2 and regular rate and rhythm Respiratory: clear to auscultation (CTA) and no rales, ronchi or wheeze Musculoskeletal: no peripheral edema and good distal pulses Skin: no stigmata of neurocutaneous disease noted and normal and intact Eyes: extraocular muscles intact (EOMI) and pupils equal, round and reactive to light (PERRL) NEUROLOGIC EXAMINATION: Mental status: Alert and interactive Oriented to full date and location Oriented to person Speech fluent with no evidence of aphasia Cranial Nerves Normal findings for Cranial Nerves II - XII Reflexes: Deep tendon reflexes were symmetrical and graded 2/5. down going toes. Sensory: light touch intact bilaterally face and UE gait/Stance: Posture normal sitting up in bed stands without assistance, does not use bed to go from sitting to standing, gait tandem steady good arm swing Motor: Negative for pronator drift of out stretched arms with eyes closed. 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 5/5 Results & Data ([facility]) Vital Signs (Past 12 Hours) Vital Signs Temp Pulse Pulse Resp BP BP Pulse Ox 04/06/20 09:20 36.8 C 95 H 16 117/65 98 04/06/20 08:20 37.0 C 75 19 114/71 98 04/06/20 07:20 36.9 C 77 19 116/68 98 04/06/20 06:20 36.9 C 72 15 104/62 95 04/06/20 05:24 66 24 79/51 L 04/06/20 05:20 75 20 04/06/20 05:15 70 21 04/06/20 04:20 74 16 109/65 95 04/06/20 03:20 75 16 103/63 95 04/06/20 02:20 65 18 107/59 L 95 Laboratory Results Abnormal lab results 04/06/20 Range/Units 09:26 Chloride 108 H (98-107) mmol/L Cholesterol 221 H (0-200) mg/dl hypercoag panel is pending Diagnostic Findings TTE- 60-65% EF no ASD MRI brain- No acute intracranial abnormality.
[2020-04-06] MEDS ORDERED: STROKE PATIENT DISCHARGE STA (15:42)
--- NOTE | 2020-04-06 15:43 | Discharge Summary ---
Date of Service April 06, 2020 Admission HPI Per Admitting Provider This is a 34-year-old female with PMH of chronic lower back pain and anxiety who presents after acute onset of right upper extremity weakness this morning. Patient was driving to a doctor appointment for routine lab work at 8 AM when she developed acute onset weakness of right upper extremity. Also endorses paresthesias that felt hot at first, then felt like her arm was asleep and tingly. Describes it as if "upper arm had Novocain". Patient pulled over and called 911 was brought to ED for further evaluation. [facility] was called for stroke alert and due to neuro deficit with right upper extremity weakness, recommended tPA administration. Denies any history of tobacco use, diabetes or heart disease. No personal history of blood clots or family history of early stroke. Does have history of infrequent migraines but they have not been complex or involved weakness or paresthesias in the past. Only past medical history is chronic back pain from L5-S1 for which she takes occasional tramadol or methocarbamol. Does endorse some weakness of right lower extremity as result of this disc disease. During my time of evaluation, weakness and paresthesias of right upper extremity have been resolving. Still feels some paresthesias in right pinky extended up towards the wrist. Denies any speaking or swallowing problems. No diplopia or photophobia. No fever, chills, headache, lightheadedness, chest pain, palpitation, shortness of breath, nausea, vomiting, abdominal pain, dysuria, diarrhea or constipation. Admission Exam Per Admitting Provider General Appearance: WD/WN, vitals as above, NAD, sitting up in bed, pleasant, conversing easily Head: normocephalic, atraumatic Eyes: normal inspection, PERRL, conjunctivae normal, anicteric sclerae ENT: external ear and nose normal, oropharynx normal Neck: normal visual inspection, trachea midline, no thyromegaly Respiratory: normal respiratory effort, lungs clear to auscultation, no wheeze, rales, rhonchi. No accessory muscle use Cardiovascular: regular rate, rhythm, no murmur, normal peripheral pulses, no BLE edema. Vessels: no JVD Chest: normal inspection of chest Abdomen/GI: normal bowel sounds, soft, nontender, no hepatosplenomegaly Extremities/Musculoskeletal: no cyanosis or clubbing, RUE 4/5 and RLE 4/5, LUE and LLE 5/5 Neurologic: PERRL, EOMI, accommodation nl, no face palsy, no dysarthria, CN's II-XI intact bilaterally and moves all extremities Psychiatric: A+Ox3, euthymic affect Skin: no rashes, normal color, warm/dry Principal Diagnosis complicated migraine chronic lower back pain Discharge Exam CONSTITUTIONAL: WNWD, vitals as above, generally well-appearing EYES: EOMI bilaterally, PERRL, normal conjunctivae, no scleral icterus ENT: external ear and nose normal, oropharynx clear, MMM RESPIRATORY: clear to auscultation bilaterally, no crackles, rales or wheezes, normal respiratory effort CARDIOVASCULAR: regular rate and rhythm, S1 and 2 heard without murmurs, gallops or rubs, no JVD, no peripheral edema GASTROINTESTINAL: soft, nontender, nondistended, no guarding. MUSCULOSKELETAL: strength 5/5 throughout, head is normocephalic and atraumatic SKIN: warm and dry NEUROLOGIC: patellar DTRs 2+ bilat. PERRL, EOMI, no facial palsy, no dysarthria. Touch, pain and proprioception normal. CN 2-12 grossly intact, no sensory deficit, normal cognition, normal speech, no tremor. Normal gait. PSYCHIATRIC: alert cooperative and oriented to person, place and time. Euthymic mood, makes good eye contact, language grossly intact, recent and remote memory grossly intact. Discharge Data Allergies Allergy/AdvReac Type Severity Reaction Status Date / Time lidocaine Allergy Intermediate Entire Verified 04/05/20 09:28 body numbness Cipro Allergy Mild SEVERE Verified 01/22/18 15:28 TOTAL BODY RASH ciprofloxacin Allergy Mild SEVERE Verified 04/05/20 09:28 TOTAL BODY RASH Consultations 04/05/20 09:33 ED Decision to Admit Stat 04/05/20 13:02 Consult Case Management - Discharge Planning Routine Consult Case Management - Discharge Planning Routine Consult Packaging Specialist Routine Consult Neurology Routine Ordered Studies 04/05/20 08:31 CT angio head w con Stat CT angio neck with con Stat CT head/brain wo con Stat 04/05/20 13:02 MR brain wo/w con Routine 04/06/20 08:00 CT head/brain wo con Routine Brain MRI WITH AND WITHOUT CONTRAST HISTORY: Foot numbness. stroke eval TECHNIQUE: Multiplanar multisequence MRI of the brain was performed both before and after the intravenous administration of contrast. COMPARISON STUDY: Head and neck CTA 04/05/2020. FINDINGS: There are no areas of restricted diffusion to suggest acute infarction. The midline structures are intact. The paranasal sinuses are clear. The mastoid air cells are clear. The ventricles and sulci are within normal limits for age. There is no mass, hematoma, midline shift. The major vascular flow-voids at the skull base are well maintained. Postcontrast sequences show no areas of abnormal enhancement. IMPRESSION: No acute intracranial abnormality. [facility], [id number] XRay Report Patient: MONSTER SHIRLEY Date: 04/05/20#: [id number]: [address] [facility] ID:[id number]: Date: 1985[facility] Zip: [place], [place] [id number]: 34Location: EDSex: FRoom/Bed:Att Phy:Diagnosis: RIGHT SI DED NUMBNESS/LEG WEAKNESSESPri Phy: Lucio Cabezas MDService Date: 04/05/20Fa Phy:Interpreting Phy: Craig Patiño MDAdmit Phy: Ordering Phy: Isatu Escalante D SINGLE VIEW CHEST CLINICAL HISTORY: Strokelike symptoms. FINDINGS: An AP, portable, upright chest radiograph is compared to study dated 03/03/2013. The cardiomediastinal silhouette is unremarkable. The lungs and pleural spaces are clear. No pneumothorax is seen. The bony thorax is grossly intact. IMPRESSION: No active disease in the chest. ACT 112: Negative or not required by law. Electronically signed by: Craig Patiño M.D. 04/05/2020 8:52 AM Dictated: 04/05/20 0852Transcribed: 04/05/20 0852 ------ [facility], [id number] CT Scan Report Patient: MONSTER SHIRLEY Date: 04/05/20#: [id number]: [id number] [facility] ID:[id number]: Date: 1985[facility] Zip: [place] [id number]: 34Location: EDSex: FRoom/Bed:Att Phy:Diagnosis: RIGHT SIDED NUMBNESS/LEG WEAKNESSESPri Phy: Lucio Cabezas MDService Date: 04/05/20Fa Phy:Interpreting Phy: Craig Patiño MDAdmit Phy: Ordering Phy: Isatu Escalante, DO CT ANGIOGRAM OF THE BRAIN; CT ANGIOGRAM OF THE NECK CLINICAL HISTORY: Right-sided weakness. COMPARISON STUDY: Unenhanced CT of the brain performed concurrently on 04/05/2020. TECHNIQUE: Following the IV administration of 120 of Optiray 320, CT angiogram of the head and neck was performed from the aortic arch to the vertex. Images are reviewed in the axial, sagittal, and coronal planes. 3-D MIPS images are created and assessed. IV contrast was administered without complication. All measurements were calculated based on NASCET criteria. A dose lowering techn ique was utilized adhering to the principles of ALARA. CT DOSE: 1081.37 mGy.cm FINDINGS: Brain parenchyma: The brain parenchyma is normal in appearance. There is no hemorrhage, mass effect, or evidence of acute territorial ischemia by CT criteria. There is no evidence of enhancing mass lesion on the angiogram phase images. The ventricles, sulci, and cisterns are normal in configuration. Frankel-wh ite matter differentiation is preserved. No extra-axial fluid collection is seen. Thoracic aorta: Visualized portions of the thoracic aorta are normal in caliber. The aortic arch demonstrates standard 3-vessel anatomy. Right carotid arterial system: The right common carotid artery is widely patent, as are the right internal and external carotid arteries. Left carotid arterial system: The left common carotid artery is widely patent, as are the left internal and external carotid arteries. Vertebral arteries: The vertebral arteries are widely patent bilaterally and codominant. Subclavian arteries: Widely patent bilaterally. Intracranial vasculature: The cachil dehe of Hendrix is developmentally complete. The internal carotid arteries are patent at the skull base, as are the anterior and middle cerebral arteries bilaterally. The vertebrobasilar system and posterior cerebral arteries are widely patent. The vertebral arteries are codominant. There is no aneurysm, high-grade stenosis, or focal vessel cut off seen throughout the intracranial circulation. Jugular veins: Patent bilaterally. Dural sinuses: Patent. Lung apices: Partially visualized upper lobe lung parenchyma appears clear. Soft tissues: The visualized pharyngeal soft tissues are normal in appearance noting angiographic phase technique. The oropharyngeal airway appears widely patent. The salivary and thyroid glands are normal in appearance. No cervical lymphadenopathy is seen. Skeletal structures: The calvarium appears intact. The cervical spine is within normal limits. Orbits: The bony orbits are intact. Orbital contents are normal as visualized. Sinuses and mastoids: The paranasal sinuses are clear. The mastoid air cells are well pneumatized. IMPRESSION: 1. There is no hemorrhage, mass effect, or evidence of acute territorial ischemia by CT criteria noting angiographic phase technique. 2. Unremarkable CT angiogram of the brain. 3. Unremarkable CT angiogram of the neck. ACT 112: Negative or not required by law. Electronically signed by: Craig Patiño M.D. 04/05/2020 8:52 AM Dictated: 04/05/2046Transcribed: 04/05/20845 Hospital Course (1) Complicated migraine: (2) Lumbar radiculopathy: The patient is a 34-year-old female who presented with a sending paresthesia and weakness on her left side beginning in her right lower extremity and moving all the way up into her right face including her right arm. In the ER a stroke alert was called and the [facility] neurologist recommended TPA which was administered. She was transferred to the ICU and monitored for 24 hours. A repeat head CT was performed 24 hours later and was negative for any intracranial abnormalities. Her symptoms resolved within hours and she remained without neurologic deficit overnight. Neurology was consulted and noted that she has a history of migraine but never had a neurologic symptom of accompanying her headaches. They recommended this sounded similar to a migrainous phenomenon and felt the clinical presentation was most consistent with a complicated migraine. Imaging including a CT angiogram of the head and neck, CT of the head without contrast and an MRI of the brain were unremarkable. A chest x-ray was performed and unremarkable. A hypercoagulable work-up was drawn and pending at time of discharge. She has no family history of complicated migraines or other hypercoagulable conditions in her family that are known. An echocardiogram was performed that was normal aside from an atrial septal aneurysm that was incidentally noted without intra-atrial shunt. The interatrial septum was intact with no evidence for atrial septal defect. The injection of contrast documented no intra-atrial shunt. The aortic valve notably was not well visualized and the number of leaflets could not be determined. There was mild aortic regurgitation seen. Ejection fraction was 60 to 65% with normal LV chamber size and wall thickness. At time of discharge she was experiencing no neurologic deficit outside of her baseline lumbar radiculopathy which was chronic. This included some sensation loss on the back of her right leg and s ome mild weakness with dorsiflexion of the right foot. She was otherwise stable for discharge and was sent home on a baby aspirin, magnesium and riboflavin with close neurologic follow-up and primary care follow-up recommended. Total Time Total Time Spent Total Time Spent (In Minutes): 60 Total Time Includes: Examination of the Patient, Discharge Planning, Medication Reconciliation and Communication With Other Providers Discharge Plan Discharge Items Patient Disposition: Home - Self-Care Reason For Visit: STROKE SYMPTOMS, S/P TPA Discharge Diagnosis: complicated migraine Condition on Discharge: Good Activity: Resume your previous activity Non-emergency contact: Primary Care Provider Call non-emergency contact if: you have any medication questions and your symptoms worsen Follow-up/Referrals: Lucio Cabezas MD [Primary Care Provider] - (Date & Time 04/09/2020 9:00 AM Provider Lucio Cabezas MD Department [facility] ) Diet: Regular Addtl Attending Provider Instructions: Please take all medications as instructed for prevention of migraines moving forward. Magnesium 400mg daily Riboflavin (B2) 400mg daily It is recommended that you take a baby aspirin for stroke prevention moving forward (81mg daily). It is recommended that you follow-up with your primary care provider in 1-2 weeks to ensure you are still doing well and discuss all changes in medications. It was a pleasure taking care of you! Please call if you have any questions or problems. You can reach a [facility] hospitalist on duty at [facility] 24 hours a day by calling [phone]. Take care of yourself. Prabha Obrien DO [facility] Hospitalist Addtl Car Pick Up Driver Provider Instructions: Risk Factors for Stroke: You can reduce your chances of stroke by working with your medical provider to adopt a healthy lifestyle. Some specific ways to lower your chance of stroke are: * If you are a smoker, now is the time to stop smoking cigarettes * If you are diabetic, improve the control of your blood sugars * Avoid excessive amounts of alcohol * Control high blood pressure * Lose weight if you are overweight * Be sure to lead an active lifestyle * Eat a healthy diet low in salt, cholesterol and fat You should know about other risk factors for stroke that you are unable to control. These include: * Age 55 years or older * Male gender * Certain racial groups: , or / * Family History of Stroke, Mini stroke or Heart Attack * Sickle Cell Disease Follow Up: It is important for you to keep your follow up appointments with your medical provider. Who to Call and When: Medical Emergencies: Call 911 immediately if you experience any of the followi ng warning signs and symptoms of Stroke: * Sudden numbness or weakness of the face, arm or leg, especially on one side of the body * Sudden confusion, trouble speaking or understanding * Sudden trouble seeing in one or both eyes * Sudden trouble walking, dizziness, loss of balance or coordination * Sudden severe headache with no cause Do not delay calling 911 if you experience any warning signs or symptoms of a stroke. Delay in seeking medical attention may affect what treatments can be given to you. . Pending Studies at Discharge: Yes Studies:: hypercoagulable workup pending at time of discharge. Stand-Alone Forms: [facility] Medications and DC Order Prescriptions: New magnesium oxide 400 mg (241.3 mg magnesium) Tablet 400 mg PO QAM Qty: 30 RF: 1 aspirin 81 mg tablet,delayed release (DR/EC) 81 mg PO DAILY Qty: 90 RF: 1 Continued tramadol 50 mg tablet 50 mg PO Q6 PRN (Reason: Pain) RF: 0 methocarbamol 750 mg tablet 750 mg PO Q8 PRN (Reason: Muscle Spasm) RF: 0 Discharge Orders: Discharge Order (Routine); Ordered 04/06/20 Ordered By: Prabha Obrien Admission Data Admit Date/Time: 04/05/20 11:03 Attending Provider: Prabha Obrien Admit Provider: Prabha Obrien Primary Care Provider: Lucio Cabezas Other Providers: Prabha Obrien ; Katie Oliveira ; Josie Chavez Other Interventions: Discharge Summary Assessment (RN) Last Done: 04/06/20 16:11
[2020-04-10 22:55] LABS: Anti Cardiolipin Ab IgG <14 GPL; Anti Cardiolipin Ab IgM 20 MPL; Anti-Thrombin III Activity 104 % normal (80-135); B2 Glycoprotein IgG <9 SGU (<=20); B2 Glycoprotein IgM <9 SMU (<=20); PTT LA Screen 39 sec (<=40); Protein S Functional(Activity) 59 % (60-140)
== END 2020-04-06 16:28 | disposition home or self-care (01) | DRG 103 ==
LOC: ED 08:13 → SUATTDRO 11:03 → 1E 11:03 → 2N 04-06 12:19